=== PATIENT | female | born 1950 | race Caucasian/White ===

== ENCOUNTER 2021-12-27 10:26 | Outpatient (CLI) | payer SELFPAY ==
--- NOTE | 2021-12-27 10:45 | CRLHL7_ITS ---
For Patients: As a result of the Century Cures Act, medical imaging exams and procedure reports are released immediately into your electronic medical record. You may view this report before your referring provider. If you have questions, please contact your health care provider. BILATERAL DIAGNOSTIC MAMMOGRAM WITH COMPUTER-AIDED DETECTION AND TOMOSYNTHESIS RIGHT BREAST ULTRASOUND CLINICAL HISTORY: RIGHT breast lump. Screening LEFT mammogram. TECHNIQUE: BILATERAL diagnostic mammograms with tomosynthesis and computer-aided detection. Targeted RIGHT breast ultrasound was also performed. COMPARISON FILM: Mammograms 05/17/2020. BREAST COMPOSITION: There are areas of scattered fibroglandular density and BILATERAL benign vascular calcifications. FINDINGS: BILATEARL benign vascular calcifications. There is an irregular mass in the anterior RIGHT breast abutting the areola at the 3 o???clock position. The irregular mass measures 1.6 x 1.8 x 1.5 cm. There is also a mildly enlarged lymph node in the RIGHT axilla measuring 1.3 cm in short axis. No mass, suspicious microcalcifications, or other findings in the LEFT breast. Targeted ultrasound of the RIGHT breast at the 3 o???clock position 1 cm from the nipple demonstrates a hypoechoic irregular mass with posterior shadowing. The mass measures 2.0 x 1.8 x 1.2 cm. IMPRESSION: 1. Irregular mass in the anterior RIGHT breast at the 3 o`clock position. Mildly enlarged RIGHT axillary lymph node. 2. Targeted ultrasound at the 3 o`clock position 1 cm from the nipple demonstrates an irregular hypoechoic mass concerning for malignancy. Recommend ultrasound-guided biopsy of the breast mass and lymph node for further evaluation. Findings and recommendations were discussed with the patient at the time of the exam. ASSESSMENT: BI-RADS Category 4: Suspicious A lay language report of this examination will be provided to the patient. Rob Farnsworth M.D. Diagnostic/Musculoskeletal Radiologist [email or web address] KATERYNA/[email or web address] ríos/Dictated by: Rob Farnsworth MD @ 12/27/2021 12:04:00 PM (Electronically Signed)
--- NOTE | 2021-12-27 11:15 | CRLHL7_ITS ---
For Patients: As a result of the Cures Act, medical imaging exams and procedure reports are released immediately into your electronic medical record. You may view this report before your referring provider. If you have questions, please contact your health care provider. PLEASE SEE DIGITAL DIAGNOSTIC BILATERAL MAMMOGRAM PERFORMED SAME DAY CRL:[email or web address] ríos/Dictated by: Rob Farnsworth MD @ 12/27/2021 12:05:00 PM (Electronically Signed)
== END 2021-12-27 10:27 | disposition home or self-care (01) ==
PROVIDERS: PCP Physician Assistant Medical; Visit Provider Physician Assistant Medical
DX: N63.10 Unspecified lump in the right breast, unspecified quadrant (principal)
CPT/HCPCS: 76642; 77066; G0279

== ENCOUNTER 2022-01-05 07:48 | Outpatient (CLI) | payer MEDICARE, SELFPAY ==
--- NOTE | 2022-01-05 08:15 | US_ITS ---
Patient: SHERRI BLANTON Facility:?[facility] RIS Patient ID:?[id number] Site Patient ID:?[id number]. Site :?[id number] Study:?US-Extremity Right RT AXILLA / DR. COLLADO TO READ-01/05/2022 9:16:40 AM Ordering Physician:?José Marcano Final Report: ULTRASOUND-GUIDED RIGHT AXILLARY LYMPH NODE BIOPSY CLINICAL HISTORY: Indeterminate lymph node right axilla COMPARISON STUDIES: A 05/28/2021 TECHNIQUE: Real-time ultrasound with image documentation was used for targeting the right axillary lymph node lesion. Core biopsy specimens were obtained using an automated gun with a 18-gauge biopsy needle. CONSENT and TIME OUT: The procedure, risks, and alternatives were explained to the patient and a consent was signed. [place] Protocol was followed including pre-procedure verification that relevant information/documentation was available, reviewed and properly matched to the patient; consent accurate and complete; and equipment and supplies available. Time Out was conducted just prior to starting procedure to verify the four required elements: patient identity, correct side/site marked (if applicable), procedure, relevant images/results properly labeled and displayed (if applicable). PROCEDURE: The patient was positioned supine on the ultrasound table. The right axilla was prepped with ChloraPrep. 8 cc of 1 percent lidocaine used for local anesthesia. Core samples were obtained. A sterile metal biopsy clip was placed percutaneously to kyleigh the lesion position within the right axilla. The specimens were placed in 10% formalin and sent to the pathology department. Pressure was held on the biopsy site until all bleeding subsided. The skin incision was closed with Steri-Strips. An ice pack was positioned over the biopsy site. Post-biopsy instructions were reviewed with the patient, and a written copy was given to her. LATERALITY: Right LESION: Hypoechoic lymph node measuring 1.2 x 0.9 x 1.2 cm at the right axilla SUSPICION FOR MALIGNANCY: High NUMBER OF SAMPLES: 6 BIOPSY CLIP SHAPE: Coil PROXIMITY OF CLIP TO TARGET: Within the lesion IMPRESSION: Ultrasound-guided right axillary lymph node biopsy. When the pathology report is available, an addendum to this report will be made. ACR not applicable Dictated by Rick Collado MD @ 01/05/2022 11:53:26 AM Signed by:?Rick Collado MD @01/05/2022 1:30:54 PM (Electronic Signature)
--- NOTE | 2022-01-05 08:15 | CRLHL7_ITS ---
For Patients: As a result of the Century Cures Act, medical imaging exams and procedure reports are released immediately into your electronic medical record. You may view this report before your referring provider. If you have questions, please contact your health care provider. ULTRASOUND-GUIDED BREAST BIOPSY AND POST-BIOPSY DIGITAL MAMMOGRAM FOR BIOPSY MARKER PLACEMENT, 01/05/2022 CLINICAL HISTORY: Indeterminate lesion RIGHT breast. COMPARISON STUDIES: Mammogram and ultrasound 12/27/2021. TECHNIQUE: Real-time ultrasound with image documentation was used for targeting the breast lesion. Core biopsy specimens were obtained using an automated gun with a 18-gauge biopsy needle. Post-biopsy CC and ML digital mammograms were obtained to document position of the biopsy marker. CONSENT and TIME OUT: The procedure, risks, and alternatives were explained to the patient and a consent was signed. [place] Protocol was followed including pre-procedure verification that relevant information/documentation was available, reviewed and properly matched to the patient; consent accurate and complete; and equipment and supplies available. Time Out was conducted just prior to starting procedure to verify the four required elements: patient identity, correct side/site marked (if applicable), procedure, relevant images/results properly labeled and displayed (if applicable). PROCEDURE: The patient was positioned supine on the ultrasound table. The breast was prepped with Betadine or ChloraPrep. 10 cc 1 percent lidocaine used for local anesthesia. Core samples were obtained. A sterile metal biopsy clip was placed percutaneously to kyleigh the lesion position within the breast. The specimens were placed in 10% formalin and sent to the pathology department. Pressure was held on the biopsy site until all bleeding subsided. The skin incision was closed with Steri-Strips. An ice pack was positioned over the biopsy site. Post-biopsy instructions were reviewed with the patient, and a written copy was given to her. LATERALITY: RIGHT breast. LESION: Lobular hypoechoic solid mass measuring 2.0 x 1.2 x 1.8 cm at 3 o`clock 1 cm from the nipple. SUSPICION FOR MALIGNANCY: High. NUMBER OF SAMPLES: 6. BIOPSY CLIP SHAPE: Coil. PROXIMITY OF CLIP TO TARGET: Within the lesion. IMPRESSION: Ultrasound-guided breast biopsy. When the pathology report is available, an addendum to this report will be made. 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 This is concordant. Appropriate action recommended. Dictated by Rick Lozada MD @ Jan 05 2022 11:51AM Signed by:?Rcik Lozada MD @01/05/2022 1:30:51 PM (Electronically Signed)
--- NOTE | 2022-01-05 09:00 | CRLHL7_ITS ---
For Patients: As a result of the Cures Act, medical imaging exams and procedure reports are released immediately into your electronic medical record. You may view this report before your referring provider. If you have questions, please contact your health care provider. PLEASE SEE RIGHT ULTRASOUND-GUIDED BIOPSY OF SAME DAY. CRL:[email or web address] SCHERER/Dictated by: Rick Lozada MD @ 01/05/2022 11:50:00 AM (Electronically Signed)
== END 2022-01-05 07:49 | disposition home or self-care (01) ==
LOC: US 07:50
PROVIDERS: PCP Physician Assistant Medical; Visit Provider Physician Assistant Medical
DX: N63.10 Unspecified lump in the right breast, unspecified quadrant (principal); C50.911 Malignant neoplasm of unspecified site of right female breast; R92.8 Other abnormal and inconclusive findings on diagnostic imaging of breast; N64.59 Other signs and symptoms in breast
CPT/HCPCS: 19083; 38505; 76942; 77065; 88305; 88360; 88361; 88377; A4648; A4649

== ENCOUNTER 2022-01-17 13:22 | Outpatient (CLI) | payer MEDICARE, SELFPAY ==
--- NOTE | 2022-01-17 13:45 | CRLHL7_ITS ---
For Patients: As a result of the Century Cures Act, medical imaging exams and procedure reports are released immediately into your electronic medical record. You may view this report before your referring provider. If you have questions, please contact your health care provider. BILATERAL BREAST MRI WITHOUT AND WITH GADOLINIUM, 01/17/2022 CLINICAL HISTORY: Recently diagnosed invasive ductal carcinoma after ultrasound-guided biopsy of a palpable 2 cm mass at 3 o`clock, 1 cm from the nipple in the RIGHT breast. An abnormal RIGHT axillary lymph node was also biopsied and was positive for metastasis. INDICATION FOR BREAST MRI: Staging of newly diagnosed breast cancer and screening of contralateral breast. Regional lymph nodes will also be assessed. COMPARISON STUDIES: Diagnostic mammogram and RIGHT breast ultrasound 12/27/2021 and images from ultrasound-guided RIGHT breast and axillary biopsy and post biopsy mammogram 01/05/2022. CONTRAST: 15 mL Dotarem. TECHNIQUE: The patient was positioned prone using a breast coil. Multiple imaging sequences were obtained using 1-1.5 mm thick slices with no gap. The image sequences include T2-weighted STIR in the axial plane, T1-weighted nonfat-saturated gradient echo in the axial plane, pre- and post-contrast T1-weighted FLASH 3D with fat suppression in the axial plane, and T1-weighted FLASH high resolution 3D with fat suppression in the sagittal plane. Image post-processing was performed on a [employer] workstation. Complex 3D rendering including maximum intensity projections (MIPS) and volumetric renderings were obtained to optimize visualization of the extent of pathology and relationship to the nipple, skin, and chest wall. This aids in determining feasibility of breast conservation surgery. Subtraction, multiplanar reconstruction, mean curve determination, and angiogenesis mapping were also performed. The study was technically adequate. FINDINGS: Amount of Fibroglandular Tissue: Scattered fibroglandular tissue. Breast Background Enhancement: Minimal. RIGHT Breast: In the inner central breast at 3 o`clock, 1 cm posterior to the nipple there is a 1.9 x 1.8 x 1.5 cm oval mass with spiculated margins demonstrating rapid initial washout delayed phase enhancement. The mass involves the skin and the base of the nipple. There is susceptibility artifact within the mass marking the site of biopsy-proven malignancy. There is mild thickening of the skin over the inner breast measuring up to 4 mm. LEFT Breast: There is no suspicious mass or enhancement within the breast. Lymph Nodes: There are at least three abnormal morphology RIGHT axillary lymph nodes. The largest measures 1.5 x 1.2 cm and contains susceptibility artifact from the clip marking the nonmetastatic RIGHT axillary lymph node. No abnormal morphology lymph nodes on the LEFT. Evaluation of internal mammary lymph nodes is somewhat limited due to susceptibility artifact from sternotomy wires. Other: There is a 1 x 0.5 cm T2 hyperintense probable cyst or hemangioma in the right lobe of the liver. IMPRESSIONS AND RECOMMENDATIONS: 1. The biopsy-proven RIGHT breast cancer measures up to 1.9 cm on MRI. The mass involves the skin and the base of the nipple. Continued surgical/oncologic management is recommended. 2. No MRI evidence of malignancy in the LEFT breast. 3. There are at least three abnormal morphology RIGHT axillary lymph nodes including the biopsy-proven metastatic lymph node. Continued surgical/oncologic management is recommended. BI-RADS Category 6: Known, biopsy-proven malignancy Dictated by Nery Lizama MD @ 01/24/2022 9:47:22 AM j/Dictated by: Nery Lizama MD @ 01/24/2022 9:47:00 AM (Electronically Signed)
== END 2022-01-17 13:23 | disposition home or self-care (01) ==
PROVIDERS: PCP Physician Assistant Medical; Visit Provider Surgery
DX: C50.811 Malignant neoplasm of overlapping sites of right female breast (principal)
CPT/HCPCS: 77049; A9575

== ENCOUNTER 2022-02-07 15:00 | Outpatient (CLI) | payer MEDICARE, SELFPAY ==
--- NOTE | 2022-02-07 15:00 | CRLHL7_ITS ---
For Patients: As a result of the Century Cures Act, medical imaging exams and procedure reports are released immediately into your electronic medical record. You may view this report before your referring provider. If you have questions, please contact your health care provider. DXA BONE MINERAL DENSITY STUDY Current height (in): 66.0. Weight (lb): 175.0. Menopause age: 61. Ethnicity: White. Reason for exam: Osteoporosis screening. 1. Have you had a previous hip or vertebral fracture? No. 2. Have you had any fractures during your adult life which did not result from significant trauma (e.g., auto accident)? No. 3. Did either of your parents have a hip fracture? No. 4. Do you smoke? No. 5. Have you ever taken Glucocorticoids? No. 6. Do you have rheumatoid arthritis? No. 7. Do you have secondary osteoporosis? No. 8. Do you drink 3 or more alcoholic drinks per day? No. 9. Are you being treated for osteoporosis? No. 10. Have you ever taken any of the following medications: Actonel, Evista, Fosamax, Miacalcin, Reclast, Boniva, Forteo, HRT (i.e. estrogen/hormone therapy), Protelos, Prolia, Vitamin D, Calcium, other ??? please specify. ANSWER: Yes, vitamin D. 11. Do you have any of the following medical conditions: Anorexia or bulimia, asthma or emphysema, end stage renal disease, hyperparathyroidism, any seizure disorders, cancer, inflammatory bowel diseases, hysterectomy, other ??? please specify. ANSWER: Yes, cancer, hysterectomy. 12. What was your maximum height (inches)? 66. 13. Do you perform weight bearing exercise regularly? No. 14. Do you regularly consume dairy products? Yes. 15. Do you drink caffeinated beverages? Yes. If female: 16. At what age did your period start? 15. 17. Are you premenopausal? No. 18. How many full term pregnancies have you had? 2. 19. Have you ever missed your period for more than 6 months in a row (not including or menopause)? No. TECHNIQUE: Bone mineral density study was performed using the [employer]. FINDINGS: The results of the study expressed as bone mineral density (BMD) are as follows: Lumbar spine L1, L2, L4: BMD: 1.084 g/cm2. T-score: 0.5. Z-score: 2.5. Neck Left: BMD: 0.590 g/cm2. T-score: -2.3. Z-score: -0.5. Right: BMD: 0.620 g/cm2. T-score: -2.1. Z-score: -0.3. Total Left: BMD: 0.799 g/cm2. T-score: -1.2. Z-score: 0.3. Right: BMD: 0.820 g/cm2. T-score: -1.0. Z-score: 0.5. IMPRESSION: Osteopenia. FRAX 10-year Fracture Risk Major Osteoporotic Fracture: 13 percent Hip Fracture: 2.8 percent Reported Risk Factors: [place] () Neck BMD = 0.590, BMI = 28.2 Rick Lozada M.D. Diagnostic Radiologist [email or web address] Transcribed: 11:07 a.m. DW/Dictated by: Rick Lozada MD @ 02/08/2022 8:36:00 AM (Electronically Signed)
== END 2022-02-07 15:01 | disposition home or self-care (01) ==
LOC: RAD 15:01
PROVIDERS: PCP Physician Assistant Medical; Visit Provider Nurse Practitioner Family
DX: Z13.820 Encounter for screening for osteoporosis (principal); M85.89 Other specified disorders of bone density and structure, multiple sites
CPT/HCPCS: 77080

== ENCOUNTER 2022-02-09 14:45 | Outpatient (CLI) | payer MEDICARE, MEDICAID, SELFPAY | END 2022-02-09 14:46 | disposition home or self-care (01) | LOC: FRMREF 02-16 10:23 | PROVIDERS: PCP Physician Assistant Medical; Visit Provider Nurse Practitioner Family | DX: N94.89 Other specified conditions associated with female genital organs and menstrual cycle (principal); E11.9 Type 2 diabetes mellitus without complications; I42.2 Other hypertrophic cardiomyopathy; E78.5 Hyperlipidemia, unspecified; I10 Essential (primary) hypertension | CPT/HCPCS: 82652 ==

== ENCOUNTER 2022-03-01 07:40 | Day surgery (SDC) | payer MEDICARE, SELFPAY ==
--- NOTE | 2022-02-19 13:41 | ONC.NURNOTE ---
Received call from Veronica, pt's daughter asking about mobility problem solving post surgery. She ususally helps the patient get out of the car by lifting under her arms to help her stand up. Reviewed barriers of no heavy lifting or raising arms above her head and possible strategies to manage, including using a gait belt. As pt has had her pre-op PT consult, recommended f/u with that team to further problem-solve in advance of surgery 03/01.
[2022-03-01] VITALS (18 sets, daily range): BP systolic 102–172; BP diastolic 40–93; PULSE 55–91; RESP 14–16; TEMP 35.1–36.8; O2SAT 14–100; BMI 30.1
[2022-03-01] MEDS: SODIUM CHLORIDE 0.9 % (FLUSH) 10 ML SYRINGE IVF (08:50)
[2022-03-01 08:55] LABS: Basophils Absolute Auto 0.01 K/uL (0.00-0.30); Basophils Percent Auto 0.2 % (0.0-3.0); Eosinophils Absolute Auto 0.16 K/uL (0.00-0.50); Eosinophils Percent Auto 3.5 % (0.0-7.0); Hematocrit 36.9 % (33.0-51.0); Hemoglobin* 12.4 gm/dL (12.0-16.0); Lymphocytes Absolute Auto 1.54 K/uL (0.90-2.90); Lymphocytes Percent Auto 33.6 % (20-44); Mean Corpuscular HGB Conc 34 gm/dL (32-36); Mean Corpuscular Hemoglobin 30 pg (26-34); Mean Corpuscular Volume 89 fL (80-100); Monocytes Percent Auto 8.7 % (0.0-11.0); Neutrophils Absolute Auto 2.48 K/uL (1.7-7.0); Platelet Count* 125 K/uL (140-440); RDW Coefficient of Variation % 11.8 % (11.5-15.5); Red Blood Count 4.17 m/uL (4.00-5.20); White Blood Count* 4.59 K/uL (4.50-11.00)
[2022-03-01 08:57] LABS: Slide Review Reflex No
--- NOTE | 2022-03-01 09:15 | CRLHL7_ITS ---
For Patients: As a result of the Cures Act, medical imaging exams and procedure reports are released immediately into your electronic medical record. You may view this report before your referring provider. If you have questions, please contact your health care provider. RIGHT AXILLARY LYMPH NODE WIRE LOCALIZATION USING ULTRASOUND GUIDANCE CLINICAL HISTORY: Right breast cancer with metastatic adenopathy. LATERALITY: Right axilla LESION: Previously biopsied metastatic right axillary lymph node. LOCALIZATION WIRE: [place] hookwire. TECHNIQUE: The localization wire was placed using real-time ultrasound guidance with image documentation. CONSENT and TIME OUT: The procedure, risks, and alternatives were explained to the patient and a consent was signed. [place] Protocol was followed including pre-procedure verification that relevant information/documentation was available, reviewed and properly matched to the patient; consent accurate and complete; and equipment and supplies available. Time Out was conducted just prior to starting procedure to verify the four required elements: patient identity, correct side/site marked (if applicable), procedure, relevant images/results properly labeled and displayed (if applicable). PROCEDURE: The skin was prepped with ChloraPrep and 10 cc of 1% lidocaine was injected for local anesthesia. The localization wire was placed within or near the targeted right axillary lesion using ultrasound guidance. The patient tolerated the procedure well. PROXIMITY OF WIRE TO LESION: Within the lesion. IMPRESSION: Successful right axillary lymph node wire localization. ACR not applicable Dictated by Rick Lozada MD @ 03/01/2022 10:17:22 AM (Electronically Signed)
--- NOTE | 2022-03-01 09:27 | CRLHL7_ITS ---
For Patients: As a result of the Cures Act, medical imaging exams and procedure reports are released immediately into your electronic medical record. You may view this report before your referring provider. If you have questions, please contact your health care provider. RIGHT BREAST SPECIMEN RADIOGRAPH, 03/01/2022 CLINICAL HISTORY: RIGHT breast cancer with metastatic RIGHT axillary adenopathy. S/p mastectomy BILATERAL with RIGHT axillary dissection and wire localization of previously biopsied RIGHT axillary lymph node. COMPARISON: MRI 01/17/2022 FINDINGS: Specimen contains multiple abnormal RIGHT axillary lymph nodes including the largest lymph node with a biopsy clip. Vascular calcifications are present and there are surgical clips. The wire is also present. IMPRESSION: Specimen contains numerous abnormal lymph nodes including the previously biopsied lymph node, clip and wire. ACR not applicable. Dictated by Rick Lozada MD @ 03/01/2022 1:15:34 PM CRL:[email or web address] RD/Dictated by: Rick Lozada MD @ 03/01/2022 1:15:00 PM (Electronically Signed)
[2022-03-01] MEDS: LACTATED RINGERS 1000 ML 1,000 ML 100 ML IV (10:00)
[2022-03-01] MEDS: CEFAZOLIN 2 GM INJ IVP (10:37)
--- NOTE | 2022-03-01 14:16 | W.ANESCHARGE ---
Anesthesia Charges Start Date/Time Anesthesia Start Date: 03/01/22 Anesthesia Start Time: 10:13 Stop Date/Time Anesthesia Stop Date: 03/01/22 Anesthesia Stop Time: 14:15 Summary Emergency: No
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
--- NOTE | 2022-03-01 14:28 | W.PM.NB ---
Nerve Block Nerve Block Time Seen by Provider: 10:20 Date Seen: 03/01/22 Type of block requested by surgeon for post-operative analgesia: intercostal and intercostal add on Side: bilateral Time out performed: Yes Verification of patient name: Yes Verification of date of : Yes Site marking: site marked Name of person performing procedure: Panchito Continuous monitoring Was continuous monitoring of O2 sat, B/P, awake overnight monitor, recorded every 15 minutes?: Yes Procedure Checklist: sterile prep, needles and gloves Ultrasound guided. Images saved: Yes Medications given in 5ml increments after negative aspiration: Marcaine %: 0.25 mL: 40 Needle gauge: 20 and Exparel mL: 20 Needle gauge: 20 Patient tolerated procedure well: Yes Block Charges Block Charge (with Pro Fee): Intercostal Nerve Block (Bilateral ) Use of Ultrasound Machine for Block: Yes- US Guidance/pain block
--- NOTE | 2022-03-01 14:31 | W.ANESCHARGE ---
Anesthesia Charges Start Date/Time Anesthesia Start Date: 03/01/22 Anesthesia Start Time: 10:13 Stop Date/Time Anesthesia Stop Date: 03/01/22 Anesthesia Stop Time: 14:15 Summary Emergency: No
--- NOTE | 2022-03-01 14:34 | P.GSOP_ITS ---
Operative Note Date of procedure: 03/01/22 Type of Procedure: 1. Bilateral mastectomy 2. Right axillary dissection with preoperative wire localization of biopsied right axillary lymph node Procedure Description: After discussing the risks and benefits of the procedure, the patient signed informed consent.? The operative site was marked and the patient was brought to the operating room and placed on the operating table in supine position.? Care was taken to pad the patient's pressure points.?? The patient was then intubated by anesthesia.?? The operative site was then prepped and draped in the usual sterile fashion.? A time-out was then performed. Oblique incisions were then drawn out on each side for symmetry. Her left breast was noticeably larger than the right. The tumor was palpable on the right below the nipple-areolar complex. We began on the right side. An oblique incision was made using a skin knife. Subcutaneous flaps were created using cautery. Care was taken to stay in the avascular plane between the breast tissue in the subcutaneous tissue. Dissection was taken superiorly to the clavicle, medially to the sternum, inferiorly to the superior aspect of the rectus sheath, and laterally to the latissimus. Once the flaps were created, the breast was taken off of the chest wall, taking the pectoralis fascia with. Small bleeding vessels were cauterized. Once I reached the axilla, I divided the breast from the axillary fat. The specimen was then marked with a stitch at the superior aspect and sent for gross margins which were negative. Attention was then turned to the axillary dissection. The axillary fat was exposed. I began my dissection along the pectoralis minor muscle and chest wall. Using a right angle, I carefully teased away the lymphatic tissue from the chest wall as I headed superiorly towards the area of the axillary vein. Cautery was used to divide this wispy tissue. Small blood vessels were clipped. The long thoracic nerve bundle was encountered on the chest wall. Care was taken avoid injury to this structure. I took my dissection superiorly to the axillary vein. The lymphatic tissue was retracted inferiorly and dissected free from the axillary vein. A branch was divided with suture. Below this I visualized the thoracodorsal bundle. This was dissected free from the axillary fat and preserved. The alta tissue was then swept inferiorly. Of note, the previously wire localized node was palpable and contained within the specimen. An intercostal brachial nerves were attempted to be spared however because they intersected the specimen, 1 of the nerves had to be divided. Once the axillary tissue was removed from the chest wall medially, the latissimus posterior laterally and the axillary vein superiorly, it was removed and sent to x-ray to ensure that the preoperatively biopsied node was contained within. The clip was present in the specimen. This was then sent to pathology as the right axillary dissection tissue. Once this was done hemostasis was achieved with cautery. I then turned my attention to the left side. Gloves and instruments were changed. An identical incision was made and dissection was taken down into the subcutaneous tissue creating skin flaps superiorly to the clavicle, medially to the sternum, inferiorly to the superior rectus sheath and laterally to the latissimus. The breast tissue was then removed from the pectoralis muscle, taking the pectoralis fascia. Hemostasis was achieved with cautery. A stitch was placed to orient the specimen and it was sent to pathology. Giovanna was then placed in the wound beds bilaterally. Hemostasis was ensured with cautery. Three 15-indonesian drains were placed, 1 in the left chest wall, and 1 in the right axilla (superior), and 1 in the right chest wall. and secured in place with nylon suture. The wounds were then closed with interrupted Vicryl dermal suture and Monocryl running subcuticular suture. Sterile dressings were applied. Instrument sponge and needle counts were correct. The patient charlee ated the procedure well. ? The patient tolerated the procedure well. Findings: 1) grossly Negative margins on right breast 2) previously biopsied right axillary node present within specimen Implants: 15 [place] left chest wall drain 15 [place] right chest wall drain 15 [place] right axillary drain (superior) Anesthesia: GETA Surgeon: Ramila Wells MD Estimated blood loss (mL): 100 Condition: stable Disposition: PACU
[2022-03-01] MEDS: HYDROmorphone 0.5 mg/0.5 ml inj IVP ×2 (16:22→21:54)
[2022-03-01] MEDS: ATORVASTATIN 10 MG TABLET 5 MG PO (17:51)
--- NOTE | 2022-03-01 18:11 | PC.NURSE ---
PATIENT ARRIVED TO FLOOR FROM PACU AROUND 1500, DROWSY AWAKES TO VOICE, ALERT AND ORIENTED, INITIALLY DECLINING PAIN IN CHEST LATER RATING PAIN 5/10 AND PRN DILAUDID GIVEN WITH RELIEF, SWAPNIL HUGGER APPLIED, DRESSING TO CHEST CDI WITH MARINE WRAP IN PLACE, LINK PATENT, 2 RIGHT JPS AND 1 LEFT LEATHA PATIENT WITH BLOODY DRAINAGE, DRT PRESENT AT BEDSIDE AND EDUCATED ON EMPTYING JPS VERBALIZED UNDERSTANDING, ALSO EDUCATED PATIENT AND DTR ON T-JOSE ARMS BOTH VERBALIZED UNDERSTANDING, PATIENT SHAKING ONE OF THE SURGICAL MEDICATION MAKES ME DO THIS, RIGHT ARM RESTRICTION DUE TO NODE REMOVAL, TOLERATING ICE CHIPS AND FLUIDS AT THIS TIME DECLINING FOOD, DECLINING NAUSEA.
[2022-03-01] MEDS: MEPERIDINE 25 MG/ML INJ 12.5 MG IVP (19:45)
[2022-03-01] MEDS: LACTATED RINGERS 1000 ML 1,000 ML 75 ML IV (22:00)
[2022-03-01] MEDS: lamoTRIgine 100 MG TABLET PO (22:01)
[2022-03-02] MEDS: HYDROmorphone 0.5 mg/0.5 ml inj IVP (02:22)
--- NOTE | 2022-03-02 02:42 | PC.NURSE ---
End of Shift: Patient pleasant and cooperative. Afebrile. Rating pain up to 6-8/10 and PRN Dilaudid given x2. Aquino discontinued.
--- NOTE | 2022-03-02 03:50 | PC.NURSE ---
Patient currently sleeping
[2022-03-02] MEDS: HYDROCODONE-ACETAMIN 5-325 MG 1 TAB PO ×3 (05:38→13:01)
--- NOTE | 2022-03-02 05:41 | PC.NURSE ---
End of Shift Note: Took over care of patient around 0300 this morning. Did let her sleep for the most part of my 4 hour shift. But then went to strip and drain her 3 luisito drains and also check on her pain level. As I drain the jps i was explaining to her what I was doing and asked if someone was going to be available to help her with her drains and the dressing change. States her youngest daughter lives with her and will be available to help her. Explain to her she should have her daughter come in this morning so that she can be shown how to do dressing change and how to empty luisito drains. She was given pain medication see MAR. Will continue to monitor until next shift.
[2022-03-02 07:00] VITALS: BP 101/63; PULSE 74; RESP 18; TEMP 36.8; O2SAT 95
[2022-03-02] MEDS: OLANZapine 5 MG TAB.RAPDIS 15 MG PO (09:18)
[2022-03-02] MEDS: METOPROLOL TARTRATE 25 MG TABLET PO (09:19)
[2022-03-02] MEDS: 0.9 % SODIUM CHLORIDE 1000 ml 1,000 ML IV (10:53)
[2022-03-02 11:00] VITALS: BP 102/86; PULSE 70; RESP 18; TEMP 36.9; O2SAT 95
--- NOTE | 2022-03-02 11:58 | PM.DS1 ---
DS: Providers Provider Date Seen: 03/02/22 Primary care physician: Jeet Kumar PA-C Attending Physician on discharge: Ramila Wells MD DS: Summary Hospital Course Hospital Course: Patient was admitted after a bilateral mastectomy with right axillary dissection. Procedure was tolerated well with [address] post op. At the time of discharge she was tolerating a regular diet, pain was controlled on oral medications and patient was ambulating independently. Her daughter will be educated regarding drain cares. Patient will follow up in clinic on 03/07. Time Spent with Patient Time attestation: Total time spent providing and/or coordinating discharge services: Exam Narrative: Exam Narrative: Gen: alert and oriented, no acute distress Breast: Bilateral incisions with dressings in place, dressings taken down. Right breast incision c/d/i, some mild erythema on superior aspect of flap, mild ecchymosis within the axilla. No obvious areas of necrosis. Right sided drains with minimal serosanguinous output. Left breast incision c/d/i. Minimal bruising. Drain in place with minimal sanguinous output. Const: Vital Signs, click to edit/add: Vital Signs - 24 hr 03/01/22 14:20 03/01/22 14:25 03/01/22 14:15 Temperature 97.0 F L Pulse Rate 73 66 70 Pulse Rate [Right Pulse Oximeter] Respiratory Rate 16 16 16 Blood Pressure 131/63 119/62 126/65 Blood Pressure [Le ft Arm] Pulse Oximetry 98 98 98 Oxygen Delivery Me thod OxyMask OxyMask OxyMask Oxygen Flow Rate 5 5 5 03/01/22 14:30 03/01/22 14:35 03/01/22 14:40 Temperature Pulse Rate 67 72 62 Pulse Rate [Right Pulse Oximeter] Respiratory Rate 16 16 16 Blood Pressure 131/64 133/93 H 139/70 Blood Pressure [Le ft Arm] Pulse Oximetry 98 100 100 Oxygen Delivery Me thod OxyMask OxyMask Room Air Oxygen Flow Rate 5 2 03/01/22 14:45 03/01/22 15:00 03/01/22 14:56 Temperature 97.0 F L 95.1 F L Pulse Rate 61 63 Pulse Rate [Right Pulse Oximeter] Respiratory Rate 16 16 Blood Pressure 137/67 Blood Pressure [Le ft Arm] 140/77 H Pulse Oximetry 99 96 Oxygen Delivery Me thod Room Air Room Air Oxygen Flow Rate 03/01/22 15:00 03/01/22 15:15 03/01/22 15:30 Temperature 95.1 F L 95.6 F L Pulse Rate Pulse Rate [Right Pulse Oximeter] 58 L 58 L 55 L Respiratory Rate 14 14 14 Blood Pressure Blood Pressure [Le ft Arm] 130/72 141/66 H 145/70 H Pulse Oximetry 96 95 94 Oxygen Delivery Me thod Room Air Room Air Room Air Oxygen Flow Rate 03/01/22 15:45 03/01/22 16:00 03/01/22 16:30 Temperature 95.9 F L 96.0 F L Pulse Rate Pulse Rate [Right Pulse Oximeter] 77 74 76 Respiratory Rate 16 16 16 Blood Pressure Blood Pressure [Le ft Arm] 147/62 H 152/69 H 142/65 H Pulse Oximetry 93 91 94 Oxygen Delivery Me thod Room Air Room Air Room Air Oxygen Flow Rate 03/01/22 17:00 03/01/22 18:00 03/01/22 23:00 Temperature 96.5 F L Pulse Rate Pulse Rate [Right Pulse Oximeter] 87 91 Respiratory Rate 16 16 Blood Pressure Blood Pressure [Le ft Arm] 172/74 H Pulse Oximetry 95 91 91 Oxygen Delivery Me thod Room Air Room Air Oxygen Flow Rate 03/01/22 23:00 03/01/22 23:00 03/02/22 03:00 Temperature 98.2 F Pulse Rate Pulse Rate [Right Pulse Oximeter] 81 81 Respiratory Rate 16 16 Blood Pressure Blood Pressure [Le ft Arm] 105/50 L Pulse Oximetry 93 Oxygen Delivery Mi thod Room Air Intubated Oxygen Flow Rate 03/02/22 07:00 03/02/22 07:00 03/02/22 07:00 Temperature 98.3 F Pulse Rate Pulse Rate [Right Pulse Oximeter] 74 74 Respiratory Rate 18 18 Blood Pressure Blood Pressure [Le ft Arm] 101/63 Pulse Oximetry 95 95 Oxygen Delivery Me thod Room Air Oxygen Flow Rate DS: Data Data Completed and Pending Labs on day of discharge: Labs from last 24 hours 03/01/22 08:39 Imm/Tot Granulo (auto) 0.0 Discharge Plan Discharge Disposition: Home, Self-Care Discharging Surgeon: Ramila Wells Follow-Up Appointment: Follow up with Dr. Nehemiah Ho 9 Prescriptions: New hydrocodone-acetaminophen 5-325 mg Tablet 1 tab PO Q6H PRN (Reason: Pain) Qty: 25 0RF Continued famotidine 20 mg tablet 20 mg PO .hs PRN atorvastatin 10 mg tablet 5 mg PO QPM lamotrigine 100 mg tablet 100 mg PO BID aspirin 325 mg tablet,delayed release (DR/EC) 325 mg PO QDAY nystatin 100,000 unit/gram cream 1 applic topical TID PRN ondansetron 4 mg tablet,disintegrating 4 mg PO Q6H PRN pantoprazole 40 mg tablet,delayed release (DR/EC) 40 mg PO QDAY PRN metoprolol tartrate 25 mg tablet 25 mg PO BID Qty: 180 1RF Rx Instructions: Take 1 tab in the AM and 0.5tab in the PM olanzapine 5 mg tablet 15 mg PO HS Held alprazolam 0.5 mg tablet 0.5 mg PO ONCE Qty: 1 0RF Hold Instructions: Resume on 03/05/22. Do not take while taking prescribed pain pill Rx Instructions: 1 po 30 minutes prior to MRI procedure Discontinued acetaminophen [Tylenol] 325 mg capsule 650 mg PO Q6H PRN Activity Level: No strenuous activity Activity Detail: No lifting more than 20 lb for 4 weeks. Discharge Diet: Regular Patient Instructions: Lymphedema (GEN), Mastectomy (GEN) Additional Instructions: Wound care: Your sutures are under the skin and will dissolve over time. Leave steri strips (white bandages) over incisions until they fall off (or remove after 7 days). OK to shower tomorrow but avoid bathing, soaking or swimming for 2 weeks. Pat the incisions dry. No need to wash or scrub the area. Cover the drain sites with Saran wrap if you shower to keep them dry. Apply ice to the area as needed for swelling. It is also OK to use a heating pad if this provides more comfort to you. Drain care: Change drain sponges daily. Empty and record drain output separately and bring to your follow-up appointment. Once each drain is putting out less than 30 ml per day for 2 consecutive days, it can be pulled. If you still have drains in place after your 1st postoperative visit, please call the breast laboratory animal care veterinarian (Estela or Madhavi) who can help arrange a time for you to come in and have your remaining drains pulled when the output is low enough. Keep Sanket wrap in place until the drains are removed. Pain control: You were prescribed a pain medication. This medication contains acetaminophen (Tylenol). If you are taking your prescribed pain pills 4 times daily, do not take additional acetaminophen. As your pain improves, you can try taking acetaminophen instead of the prescribed pain pill. It is ok to take Ibuprofen or Naproxen (per directions on packaging). This medication helps with inflammation and swelling. Take an [id number] stool softener while you are taking prescribed pain medications to help alleviate constipation. I recommend Senna and/or Colace. Take as directed on package. If you have not had a bowel movement in 3 days, try taking Miralax as directed on the package. All of these are available over the counter. Follow-up Follow up with Dr. Cerna next Saturday Please call if you are experiencing severe pain, nausea, vomiting, difficulty urinating, fever or have not had bowel movement in 4 days after surgery. Forms: Work/Release Restrictions Follow-up: Jeet Kumar PA-C [Primary Care Provider] - Discharge Orders: Discharge Order (Routine); Ordered 03/02/22 Ordered By: Ann Cerna
[2022-03-02] MEDS: LACTATED RINGERS 1000 ML 1,000 ML 75 ML IV (12:27)
--- NOTE | 2022-03-02 15:22 | PC.NURSE ---
Pt up with SBA to chair with IV pole. Tolerates regular diet without N/V. Rates pain 4-7/10; Iola with relief. Eductaion on LEATHA drains and binding done throughout shift/ Pt requests all eduction be done when daughter is present.
--- NOTE | 2022-03-02 16:50 | PC.NURSE ---
Discharge: patients daughter along with patient given discharge instructions and teachings on LEATHA drain care, demonstration given. Discussed medications and follow up orders. Patients son in law expressed that he was upset with discharge, stated it seemed messy and claimed staff did not inform family that patient could discharge until 2pm and that they felt picking her up at 4pm was too late. Explained discharge process to family. IV removed from right wrist. Patient discharged from unit @ 1620 via wheelchair, discharged home.
== END 2022-03-02 16:20 | disposition home or self-care (01) ==
LOC: OR 07:44 → MEDSURG 08:00
PROVIDERS: PCP Physician Assistant Medical; Visit Provider Surgery
PROC: (CPT 19303; principal; 2022-03-01 10:00)
DX: C50.811 Malignant neoplasm of overlapping sites of right female breast (principal); C77.3 Secondary and unspecified malignant neoplasm of axilla and upper limb lymph nodes; Z17.0 Estrogen receptor positive status [ER+]; N60.92 Unspecified benign mammary dysplasia of left breast
CPT/HCPCS: 19303; 38525; 10035; 36415; 400; 64420; 76942; 82962; 85025; 86850; 86900; 86901; 88307; 88309; 88341; 88342; 88360; A9270; C1769; C9290; J0690; J1170; J2175; J2250; J2370; J2405; J2704; J3010; J3490; J7030; J7120

== ENCOUNTER 2022-04-13 12:00 | Outpatient (RCR) | payer MEDICARE, SELFPAY ==
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
--- NOTE | 2022-04-06 16:32 | ONC.NURNOTE ---
Pt has dental appt for Sat 04/07 @ 1300 at [facility]. Dental Clearance form faxed. p: [phone] f: [phone]
--- NOTE | 2022-05-07 11:39 | ONC.NURNOTE ---
Called pt and daughter Kathy to check in on how weekend went following 1st T/C last . Pt notes her fatigue has increased; she is sleeping ~45 min/night (baseline 3-4 hrs/night prior to Breast Ca dx). She reports a hx of difficulty falling asleep and staying asleep. She has a hx of urinary urgency that is flaring right now, which is contributing to interrupted sleep. She saw Urology in the past who referred pt to pelvic floor PT; pt unable to begin treatment at the time d/t complex psychosocial issues, including ride availability. She denies current pain with urination, fevers, other s/s UTI. Reviewed pt's PO intake. Pt denies N/V but reports very low appetite. She estimates drinking 24 oz or more of water/day over the weekend; difficult to quantify/track. Daughter notes she has been reminding her to drink and will watch her intake more closely. Foods she tolerates include pizza, cookies, crackers; encouraged increasing intake of fluid-containing foods, i.e. popsicles, ice cream, soup, fruit, etc. She denies diarrhea or constipation. She denies dizziness, light-headedness, fainting, seeing starts or spots with position changes. She states she feels steady, just very tired, especially after activity like taking a shower. Pt reports occasional shooting pain on bilateral sides of trunk that comes and goes. Describes as lower than ribs, but further difficult to characterize, saying it varies. Pt's daughter, Kathy, reports pt developed red spots on her face and neck sometime around Saturday that are improving without intervention. She describes them as looking like pimples; pt denies itchiness currently or over the weekend. Kathy emailed 4 photos of rash; copy writer to review photos with Elizabeth Stephen APRN. Discussed possibility of coming into [facility] today for assessment of dehydration, rash, pain; pt declined, wanting to try to increase PO fluids at home. Reviewed with pt and daughter Kathy that BNN to review with Elizabeth Stephen APRN, call tomorrow morning to check in and discussed a strong possibility of needing IVF tomorrow (Tues) if not significant improvement.
== END 2022-09-07 23:59 | disposition home or self-care (01) ==
PROVIDERS: PCP Physician Assistant Medical; Visit Provider Surgery
DX: C50.911 Malignant neoplasm of unspecified site of right female breast (principal); Z51.89 Encounter for other specified aftercare
CPT/HCPCS: 97110; 97140; 97162; 97164; 97165; 97535

== ENCOUNTER 2022-06-01 10:43 | Inpatient (IN) | payer MEDICARE, SELFPAY ==
[2022-06-01] VITALS (40 sets, daily range): BP systolic 64–105; BP diastolic 33–74; PULSE 78–203; RESP 18–20; TEMP 36.3–37; O2SAT 55–97; BMI 27.4; BMI 29.4
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
[2022-06-01] MEDS: PIPERACILLIN/TAZOBACTAM 3.375 GM in 0.9 % SODIUM CHLORIDE Mini-bag 100 ML IVPB (11:34)
[2022-06-01] MEDS: 0.9 % SODIUM CHLORIDE 1000 ml 1,000 ML 6000 ML IV ×3 (11:34→12:42)
[2022-06-01 11:40] LABS: Basophils Percent Auto 0.3 % (0.0-3.0); Eosinophils Percent Auto 0.3 % (0.0-7.0); Hemoglobin* 10.6 gm/dL (12.0-16.0); Immature Granulocytes Pct Auto 8.2 %; Lymphocytes Percent Auto 16.1 % (20-44); Mean Corpuscular HGB Conc 33 gm/dL (32-36); Mean Corpuscular Hemoglobin 29 pg (26-34); Mean Corpuscular Volume 87 fL (80-100); Monocytes Percent Auto 17.2 % (0.0-11.0); Neutrophils Percent Auto 57.9 % (42.0-72.0); Platelet Count* 83 K/uL (140-440); RDW Coefficient of Variation % 12.9 % (11.5-15.5); Red Blood Count 3.68 m/uL (4.00-5.20); White Blood Count* 3.54 K/uL (4.50-11.00)
[2022-06-01 11:43] LABS: Lactate* 1.5 mmol/L (0.5-1.9)
[2022-06-01 11:50] LABS: PCR FLU A Negative PCR FLU A (Negative); PCR FLU B Negative PCR FLU B (Negative); PCR RSV Negative PCR RSV (Negative); SARS PCR* Negative SARS-CoV-2 (Negative)
[2022-06-01 11:52] LABS: Slide Review Reflex Yes
[2022-06-01 11:55] LABS: Albumin* 3.4 g/dL (3.3-5.0); Chloride* 103 mmol/L (96-114)
[2022-06-01 11:56] LABS: Potassium* 4.7 mmol/L (3.6-5.1); Sodium* 133 mmol/L (135-149)
[2022-06-01 11:58] LABS: Creatinine* 1.8 mg/dL (0.5-1.5); Est. Creatinine Clearance* 27.22; Estimated Glomerular Filt Rate 30 ml/min
[2022-06-01 11:59] LABS: Alanine Aminotransferase* 13 U/L (4-35); Alkaline Phosphatase* 62 U/L (40-150); Aspartate Amino Transferase* 25 U/L (12-35); Bilirubin Direct* 0.4 mg/dL (0.0-0.5); Bilirubin Total* 1.3 mg/dL (0.1-1.5); Blood Urea Nitrogen* 19 mg/dL (7-30); Calcium* 8.4 mg/dL (8.4-10.6); Carbon Dioxide* 26 mmol/L (20-32); Glucose* 119 mg/dL (60-115); Total Protein* 6.4 g/dL (6.0-8.3)
[2022-06-01 12:11] LABS: Troponin I* 0.02 ng/mL (0.01-0.04)
[2022-06-01 12:12] LABS: INR 1.21 (0.91-1.10); Prothrombin Time 16.1 Seconds
[2022-06-01 12:17] LABS: C Reactive Protein* 21.7 mg/dL (0.5-1.0)
[2022-06-01] MEDS: 5 % DEXTROSE/0.9% SOD CHLORIDE 1,000 ML 75 ML IV (13:06)
[2022-06-01 14:27] LABS: Appearance Urine Cloudy (Clear); Bilirubin Urine Negative (Negative); Blood Urine Negative (Negative); Color Urine Yellow (Yellow); Glucose Urine Negative (Negative); Ketones Urine Negative (Negative); Leukocyte Esterase Urine Trace (Negative); Nitrite Urine Negative (Negative); Protein Urine 1+ (Negative); Specific Gravity Urine 1.025 (1.000-1.030); Urobilinogen Urine 0.2 (0.2-1.0); pH Urine 5.5 (5.0-8.5)
[2022-06-01 14:44] LABS: Bacteria Urine Few; RBC Urine 0-2 (0-2); Squamous Epithelial Cell Urine Moderate (None-Few)
[2022-06-01 14:57] LABS: Slide Review Acceptable Review (Acceptable)
[2022-06-01 17:33] LABS: Procalcitonin* 0.16 ng/mL (<0.50)
[2022-06-01] MEDS: ACETAMINOPHEN 500 MG TABLET PO (18:09)
[2022-06-01] MEDS: LOPERAMIDE HCL 2 MG CAPSULE PO (18:10)
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
[2022-06-01] MEDS: ATORVASTATIN 10 MG TABLET 20 MG PO (20:45)
[2022-06-01] MEDS: BUSPIRONE 10 MG TABLET 7.5 MG PO (20:45)
[2022-06-01] MEDS: carvediloL 6.25 MG TABLET 3.125 MG PO (20:47)
[2022-06-01] MEDS: QUETIAPINE 100 MG TABLET 200 MG PO (20:48)
[2022-06-01] MEDS: MELATONIN 3 MG TABLET PO (20:48)
[2022-06-01] MEDS: lamoTRIgine 100 MG TABLET PO (20:48)
[2022-06-01] MEDS: SODIUM CHLORIDE 0.9 % (FLUSH) 10 ML SYRINGE 5 ML IVF (20:49)
[2022-06-01] MEDS: 5 % DEXTROSE/0.9% SOD CHLORIDE 1,000 ML 125 ML IV (22:27)
[2022-06-02] VITALS (7 sets, daily range): BP systolic 108–123; BP diastolic 44–85; PULSE 67–97; RESP 16–24; TEMP 36.6–37.6; O2SAT 90–93
--- NOTE | 2022-06-02 05:03 | PC.NURSE ---
Shift note: Pt still complain of weakness and has been in bed throughout the shift. Make needs and used call light appropriately. Denied Pain, SOB and. However, the Bp has been recorded around low normal.Pt had good night sleep.
[2022-06-02 06:38] LABS: Basophils Percent Auto 0.3 % (0.0-3.0); Eosinophils Percent Auto 0.6 % (0.0-7.0); Hematocrit 28.2 % (33.0-51.0); Hemoglobin* 9.2 gm/dL (12.0-16.0); Immature Granulocytes Pct Auto 16.7 %; Lymphocytes Percent Auto 8.1 % (20-44); Mean Corpuscular HGB Conc 33 gm/dL (32-36); Mean Corpuscular Hemoglobin 29 pg (26-34); Mean Corpuscular Volume 89 fL (80-100); Monocytes Percent Auto 11.9 % (0.0-11.0); Neutrophils Percent Auto 62.4 % (42.0-72.0); Platelet Count* 72 K/uL (140-440); Red Blood Count 3.16 m/uL (4.00-5.20); White Blood Count* 3.35 K/uL (4.50-11.00)
[2022-06-02 06:45] LABS: Chloride* 111 mmol/L (96-114); Potassium* 3.3 mmol/L (3.6-5.1); Sodium* 136 mmol/L (135-149)
[2022-06-02 06:48] LABS: Creatinine* 0.9 mg/dL (0.5-1.5); Estimated Glomerular Filt Rate 69 ml/min
[2022-06-02 06:49] LABS: Blood Urea Nitrogen* 9 mg/dL (7-30); Calcium* 7.7 mg/dL (8.4-10.6); Carbon Dioxide* 23 mmol/L (20-32); Glucose* 167 mg/dL (60-115); Magnesium* 1.5 mg/dL (1.5-2.6)
[2022-06-02 07:08] LABS: C Reactive Protein* 17.9 mg/dL (0.5-1.0)
[2022-06-02 07:20] LABS: Slide Review Reflex Yes
[2022-06-02 07:21] LABS: Slide Review Acceptable Review (Acceptable)
[2022-06-02] MEDS: POTASSIUM CHLORIDE 10 MEQ CAPSULE ER PO (08:51)
[2022-06-02] MEDS: BUSPIRONE 10 MG TABLET 7.5 MG PO ×2 (08:51→19:29)
[2022-06-02] MEDS: QUETIAPINE 25 MG TABLET 50 MG PO (08:51)
[2022-06-02] MEDS: carvediloL 6.25 MG TABLET 3.125 MG PO ×2 (08:51→19:34)
[2022-06-02] MEDS: SODIUM CHLORIDE 0.9 % (FLUSH) 10 ML SYRINGE 5 ML IVF ×2 (08:52→13:18)
[2022-06-02] MEDS: ASCORBIC ACID 500 MG TABLET PO (08:52)
[2022-06-02] MEDS: lamoTRIgine 100 MG TABLET PO ×2 (08:52→19:29)
--- NOTE | 2022-06-02 12:26 | CRLHL7_ITS ---
For Patients: As a result of the Century Cures Act, medical imaging exams and procedure reports are released immediately into your electronic medical record. You may view this report before your referring provider. If you have questions, please contact your health care provider. INDICATION: Gram positive bacteremia. TECHNIQUE: CT chest, abdomen and pelvis acquired with IV contrast. 90 mL IV Isovue 370. COMPARISON: CT of the abdomen and pelvis 06/01/2021, 06/22/2020 and 02/15/2020. FINDINGS: Chest: Heart size is upper limits of normal. The main pulmonary artery is mildly enlarged measuring 3.3 cm in diameter. Normal caliber thoracic aorta. No thoracic lymphadenopathy. Postsurgical changes in the right axilla and postsurgical changes of right mastectomy. There are mild ground-glass opacities in the right upper lobe. No other abnormal opacities. Small left pleural effusion with associated atelectasis. No consolidation or pneumothorax. Abdomen and Pelvis: Subcentimeter hypoattenuating lesion in the right lobe of the liver decreased in size from the previous exam and likely represents a benign cyst. No suspicious liver lesion. Layering sludge in the gallbladder. No evidence of acute cholecystitis. No biliary ductal dilatation. The spleen, pancreas and adrenal glands are normal in appearance. There is a subcentimeter hypoattenuating left renal lesion which is too small to accurately characterize. Scattered colonic diverticula but no evidence for acute diverticulitis. No bowel obstruction or inflammation. No ascites or free air. No abdominal or pelvic lymphadenopathy. The uterus is surgically absent. Bladder is normal in appearance. Sternotomy changes. No acute osseous abnormality or suspicious osseous lesion. IMPRESSION: 1. Mild ground-glass opacities involving the right upper lobe are suspicious for pneumonia. 2. No acute abnormality or evidence of infection in the abdomen or pelvis. 3. Enlargement of the main pulmonary artery suggestive of pulmonary arterial hypertension. Please note that all CT scans at this facility use dose modulation, iterative reconstruction, and/or weight-based dosing when appropriate to reduce radiation dose to as low as reasonably achievable. Dictated by Nery Lizama MD @ 06/02/2022 2:32:22 PM (Electronically Signed)
[2022-06-02] MEDS: LORazepam 2 MG/ML inj 0.5 MG IVP (13:18)
--- NOTE | 2022-06-02 13:26 | REH.PT ---
Hold PT today per MD Bradshaw. Will attempt Eval & Treat 2/5
[2022-06-02] MEDS: PIPERACILLIN/TAZOBACTAM 3.375 GM in 0.9 % SODIUM CHLORIDE Mini-bag 100 ML IVPB ×2 (13:45→18:19)
[2022-06-02] MEDS: POTASSIUM CHLORIDE 10 MEQ/100 ML PIGGYBACK 100 MEQ IVPB ×2 (16:05→19:24)
--- NOTE | 2022-06-02 17:00 | PM.IMPN1 ---
Progress Note: A&P Assessment and plan (1) Pneumonia: Problem details: -right upper lobe. Zosyn and vanc started this morning. Will change vanc to azithromycin. Will follow blood cultures, respiratory compromise, overall strength and clinical course. Status: Acute (2) Acute kidney injury: Problem details: Due to acute illness. Improving. Status: Acute (3) Hypokalemia: Problem details: Replace and trend Status: Acute (4) Tremor: Problem details: Most likely explanation is olanzapine/antipsychotic. Continue outpatient monitoring with outpatient mental health provider Status: Acute (5) Type 2 diabetes mellitus without complication: Problem details: Will follow blood glucose levels Status: Acute (6) Invasive ductal carcinoma of breast: Problem details: Grade 3 ER/TX(+) HER2(-) pT1c N1a invasive ductal carcinoma, Oncotype DX score 30 Bilateral mastectomy, 03/01/2022 -admitted 06/02/2022 with pneumonia status post 2 rounds of chemotherapy Status: Acute (7) Breast cancer metastasized to axillary lymph node: Problem details: Undergoing chemotherapy, most 05/24/2022 Status: Acute Subjective Date Seen: 06/02/22 Interval history: Daily Progress Note - Hospital Medicine Day #: 2 CC: KEY, weakness, concern for possible sepsis, status post chemotherapy for known breast cancer OVERNIGHT UPDATES FROM STAFF & MED, LAB, IMAGING UPDATES -received fluids overnight. Patient still complains of weak legs and not feeling well. Complaining of stomach cramping. Passing gas has not really helped. No real appetite. Afebrile with a T-max of 99.4? - no vomiting or diarrhea. -called from the lab for 1 positive blood culture, Gram-positive growth within 24 hours -repeated blood cultures so those are pending -mildly neutropenic. ANC 2089 Hemoglobin is down to 9.2, likely hemodilutional Platelet counts 72 K Potassium 3.3, creatinine has improved from 1.8-0.9 Magnesium is low normal Liver function tests are reassuring. CRP is down trending, pro count normal CT abdomen pelvis today 1. Mild ground-glass opacities involving the right upper lobe are suspicious for pneumonia. 2. No acute abnormality or evidence of infection in the abdomen or pelvis. 3. Enlargement of the main pulmonary artery suggestive of pulmonary arterial hypertension. Objective: Vitals: see above Lungs: Clear. Cardiac: S1S2. Disposition/Potential discharge - Likely to return to previous living situation. Total time is 35 minutes with greater than 50% spent in counseling and coordination of care. Exam Const: Vital Signs, click to edit/add: Vital Signs - 24 hr 06/01/22 19:00 06/01/22 23:00 06/02/22 03:00 Temperature 98.6 F 97.9 F 98.2 F Pulse Rate Pulse Rate [Left B rachial] 84 81 97 Respiratory Rate 18 18 18 Blood Pressure [Le ft Arm] 97/68 101/74 109/67 Pulse Oximetry 91 92 90 Oxygen Delivery Me thod Room Air Room Air Room Air 06/02/22 08:03 06/02/22 08:04 06/02/22 12:36 Temperature 99.7 F H 99.4 F Pulse Rate 83 Pulse Rate [Left B rachial] 86 79 Respiratory Rate 24 20 Blood Pressure [Le ft Arm] 109/58 L 117/85 Pulse Oximetry 90 90 Oxygen Delivery Me thod Room Air Room Air Labs Labs: Laboratory Results - last 24 hr 06/01/22 06/02/22 06/02/22 11:15 06:23 06:23 WBC 3.35 L RBC 3.16 L Hgb 9.2 L Hct 28.2 L MCV 89 MCH 29 MCHC 33 RDW Coeff of Derek 13.0 Plt Count 72 L Neut % (Auto) 62.4 Lymph % (Auto) 8.1 L [place] % (Auto) 11.9 H Eos % (Auto) 0.6 Baso % (Auto) 0.3 Neut # (Auto) 2.10 Lymph # (Auto) 0.30 L [place] # (Auto) 0.40 Eos # (Auto) 0.00 Baso # (Auto) 0.00 Diff Slide Review Acceptable Review Sodium 136 Potassium 3.3 L Chloride 111 Carbon Dioxide 23 BUN 9 Creatinine 0.9 Estimated Creat Clear 49.00 Estimated GFR 69 Glucose 167 H Calcium 7.7 L Magnesium 1.5 C-Reactive Protein 17.9 H Procalcitonin 0.16
[2022-06-02] MEDS: MELATONIN 3 MG TABLET PO (19:28)
[2022-06-02] MEDS: ATORVASTATIN 10 MG TABLET 20 MG PO (19:28)
[2022-06-02] MEDS: AZITHROMYCIN 250 MG TABLET 500 MG PO (19:29)
[2022-06-02] MEDS: QUETIAPINE 100 MG TABLET 200 MG PO (19:29)
--- NOTE | 2022-06-02 22:16 | PC.NURSE ---
Shift [id number]- Patient appears weak. She notes some abdominal pain this afternoon- declines medication. She also states she is a little nauseous this evening, though declines medication. Daughter given update via phone. Per daughters request, patient is offered ensure. Patient does not want, but agrees that tomorrow. She also does not want to do any PM cares, though she states she'd like to do those things in the AM. IV's to arm discontinued due to infiltration- IV to foot utilized to complete administrations. She is up to bedside commode (pivot). Appetite is poor.
[2022-06-03] VITALS (10 sets, daily range): BP systolic 101–136; BP diastolic 58–98; PULSE 71–83; RESP 16–18; TEMP 36.1–37.3; O2SAT 92–97
[2022-06-03] MEDS: PIPERACILLIN/TAZOBACTAM 3.375 GM in 0.9 % SODIUM CHLORIDE Mini-bag 100 ML IVPB ×4 (00:01→21:23)
--- NOTE | 2022-06-03 05:09 | PC.NURSE ---
Shift note: Pt is doing well with A1, walker and GB to and from BR. NSR with 1st degree HB has been recorded on tele reading. O2>90% on room air, denied pain, SOB, and cough. Pt appears to have regained strength compared to yesterday. No fall attempt and self-transfer noted. Uses call light well and able to make needs known.
[2022-06-03 08:19] LABS: HCO3 VBG 25 mmol/L (21-28); Ionized Calcium* 1.05 mmol/L (1.11-1.30); PCO2 VBG 39 mmHG (40-50); PO2 VBG 38.4 mmHG (25-47); pH VBG 7.422 (7.32-7.43)
[2022-06-03 08:26] LABS: Basophils Percent Auto 0.2 % (0.0-3.0); Eosinophils Percent Auto 0.7 % (0.0-7.0); Hematocrit 25.7 % (33.0-51.0); Hemoglobin* 8.6 gm/dL (12.0-16.0); Immature Granulocytes Pct Auto 13.4 %; Lymphocytes Percent Auto 7.3 % (20-44); Mean Corpuscular HGB Conc 34 gm/dL (32-36); Mean Corpuscular Hemoglobin 30 pg (26-34); Mean Corpuscular Volume 88 fL (80-100); Monocytes Percent Auto 10.8 % (0.0-11.0); Neutrophils Percent Auto 67.6 % (42.0-72.0); Platelet Count* 76 K/uL (140-440); RDW Coefficient of Variation % 13.1 % (11.5-15.5); Red Blood Count 2.92 m/uL (4.00-5.20); White Blood Count* 4.26 K/uL (4.50-11.00)
[2022-06-03 08:34] LABS: Slide Review Reflex No
[2022-06-03 08:43] LABS: Albumin* 2.5 g/dL (3.3-5.0); Chloride* 109 mmol/L (96-114); Sodium* 135 mmol/L (135-149)
[2022-06-03 08:44] LABS: Potassium* 3.3 mmol/L (3.6-5.1)
[2022-06-03 08:46] LABS: Creatinine* 0.7 mg/dL (0.5-1.5); Estimated Glomerular Filt Rate 93 ml/min
[2022-06-03 08:47] LABS: Alanine Aminotransferase* 10 U/L (4-35); Alkaline Phosphatase* 53 U/L (40-150); Aspartate Amino Transferase* 22 U/L (12-35); Bilirubin Total* 0.8 mg/dL (0.1-1.5); Blood Urea Nitrogen* 6 mg/dL (7-30); Calcium* 7.5 mg/dL (8.4-10.6); Carbon Dioxide* 23 mmol/L (20-32); Glucose* 109 mg/dL (60-115)
[2022-06-03 08:48] LABS: Magnesium* 1.3 mg/dL (1.5-2.6)
[2022-06-03 09:04] LABS: Procalcitonin* 0.08 ng/mL (<0.50)
[2022-06-03 09:12] LABS: C Reactive Protein* 16.5 mg/dL (0.5-1.0)
--- NOTE | 2022-06-03 10:09 | PM.IMPN1 ---
Progress Note: A&P Assessment and plan (1) Pneumonia: Problem details: -right upper lobe. Zosyn and vanc started this morning. Will change vanc to azithromycin. Will follow blood cultures, respiratory compromise, overall strength and clinical course. Status: Acute (2) Acute kidney injury: Problem details: Due to acute illness. Improving. Status: Acute (3) Hypokalemia: Problem details: Replace and trend Status: Acute (4) Tremor: Problem details: Most likely explanation is olanzapine/antipsychotic. 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: Problem details: Undergoing chemotherapy, most 05/24/2022 Status: Acute (8) Antineoplastic chemotherapy induced anemia: Problem details: 1 unit transfusion of prbc's ordered 06/03/22 Status: Acute (9) Hypomagnesemia: Problem details: mag infusion 06/03/22 Status: Acute (10) Hypocalcemia: Problem details: tums 500mg TID w/food Status: Acute Subjective Date Seen: 06/03/22 Interval history: Daily Progress Note - Hospital Medicine Day #: 3 CC: KEY, weakness, concern for possible sepsis, status post chemotherapy for known breast cancer OVERNIGHT UPDATES FROM STAFF & MED, LAB, IMAGING UPDATES -feels weak in the legs. coughing. is concerned she is not getting better. CAP CT yesterday revealed a RUL pneumonia. she is on RA. we have zosyn and azithromycin ordered. s/p 1 dose of vanc. 101/58. Pulse 76. Respirations 16. Afebrile. O2 sat 92%. On room air. Hemoglobin is drifting down since admission. Is now 8.6. However, her white blood cell count is coming up. Today is 4.26. Her platelets are stable and up just a little from yesterday. INR 1.21 PH 7.4 Potassium 3.3, otherwise unremarkable BMP Her Mag is a little low today as is her ionized calcium. Her CRP is down trending just slightly She has a couple of sets of blood cultures that are now drawn and pending. Were still following the 1st bottle that had Gram-positive growth. CT abdomen pelvis 06/02/22 1. Mild ground-glass opacities involving the right upper lobe are suspicious for pneumonia. 2. No acute abnormality or evidence of infection in the abdomen or pelvis. 3. Enlargement of the main pulmonary artery suggestive of pulmonary arterial hypertension. Objective: alopecia; pale. disshelved. Vitals: see above Lungs: no significant wheezes Cardiac: S1S2. Disposition/Potential discharge - Likely to return to previous living situation. Total time is 35 minutes with greater than 50% spent in counseling and coordination of care. Exam Const: Vital Signs, click to edit/add: Vital Signs - 24 hr 06/02/22 12:36 06/02/22 15:35 06/02/22 19:05 Temperature 99.4 F 98.5 F 98 F Pulse Rate [Left B rachial] 79 80 85 Respiratory Rate 20 18 16 Blood Pressure [Le ft Arm] 117/85 120/68 123/65 Pulse Oximetry 90 92 93 Oxygen Delivery Me thod Room Air Room Air Room Air 06/02/22 23:00 06/03/22 03:00 Temperature 97.9 F 97.9 F Pulse Rate [Left B rachial] 67 76 Respiratory Rate 16 16 Blood Pressure [Le ft Arm] 108/44 L 101/58 L Pulse Oximetry 93 92 Oxygen Delivery Me thod Room Air Room Air Labs Labs: Laboratory Results - last 24 hr 06/03/22 06/03/22 06/03/22 07:45 07:45 07:45 WBC 4.26 L RBC 2.92 L Hgb 8.6 L Hct 25.7 L MCV 88 MCH 30 MCHC 34 RDW Coeff of Derek 13.1 Plt Count 76 L Neut % (Auto) 67.6 Lymph % (Auto) 7.3 L Hernando % (Auto) 10.8 Eos % (Auto) 0.7 Baso % (Auto) 0.2 Neut # (Auto) 2.90 Lymph # (Auto) 0.30 L Hernando # (Auto) 0.50 Eos # (Auto) 0.00 Baso # (Auto) 0.00 VBG pH 7.422 VBG pCO2 39 L VBG pO2 38.4 VBG HCO3 25 Sodium 135 Potassium 3.3 L Chloride 109 Carbon Dioxide 23 BUN 6 L Creatinine 0.7 Estimated Creat Clear 49.00 Estimated GFR 93 Glucose 109 Calcium 7.5 L Ionized Calcium Ronnell 1.05 L Magnesium 1.3 L Total Bilirubin 0.8 AST 22 ALT 10 Alkaline Phosphatase 53 C-Reactive Protein 16.5 H Total Protein 5.0 L Albumin 2.5 L Procalcitonin 0.08
[2022-06-03] MEDS: BUSPIRONE 10 MG TABLET 7.5 MG PO ×2 (11:41→21:15)
[2022-06-03] MEDS: ASCORBIC ACID 500 MG TABLET PO (11:41)
[2022-06-03] MEDS: POTASSIUM CHLORIDE 10 MEQ CAPSULE ER PO (11:41)
[2022-06-03] MEDS: lamoTRIgine 100 MG TABLET PO ×2 (11:41→21:17)
[2022-06-03] MEDS: QUETIAPINE 25 MG TABLET 50 MG PO (11:42)
[2022-06-03] MEDS: 0.9 % SODIUM CHLORIDE 1000 ml 1,000 ML 75 ML IV ×2 (11:42→23:27)
[2022-06-03] MEDS: carvediloL 6.25 MG TABLET 3.125 MG PO ×2 (11:42→21:17)
[2022-06-03] MEDS: SODIUM CHLORIDE 0.9 % (FLUSH) 10 ML SYRINGE 5 ML IVF (11:43)
[2022-06-03] MEDS: CALCIUM CARBONATE 500 MG CHEW PO ×2 (15:06→21:17)
[2022-06-03] MEDS: AZITHROMYCIN 250 MG TABLET PO (16:37)
[2022-06-03] MEDS: MAGNESIUM SULFATE 2 GM/50 ML PIGGYBACK IVPB (16:37)
[2022-06-03] MEDS: OXYCODONE 5 MG TABLET 2.5 MG PO (16:43)
[2022-06-03] MEDS: ATORVASTATIN 10 MG TABLET 20 MG PO (21:15)
[2022-06-03] MEDS: QUETIAPINE 100 MG TABLET 200 MG PO (21:18)
[2022-06-04] VITALS (7 sets, daily range): BP systolic 104–134; BP diastolic 51–76; PULSE 63–79; RESP 16–22; TEMP 36.7–37.4; O2SAT 91–97
[2022-06-04] MEDS: PIPERACILLIN/TAZOBACTAM 3.375 GM in 0.9 % SODIUM CHLORIDE Mini-bag 100 ML IVPB ×4 (03:24→21:38)
--- NOTE | 2022-06-04 04:58 | PC.NURSE ---
Shift note: Pt appears weaker tonight, She refuse super but blood glucose at 2100 was 90mg/dl. Pt accepted to be given put-in at 0330. Pt is vitally stable. Has been sleeping most of the shift. Attempted to use the bedside commode but could not any urine. Denied pain, SOB, and cough.
[2022-06-04 06:17] LABS: HCO3 VBG 25 mmol/L (21-28); PCO2 VBG 40 mmHG (40-50); PO2 VBG 41.6 mmHG (25-47)
[2022-06-04 06:30] LABS: Basophils Absolute Auto 0.01 K/uL (0.00-0.30); Basophils Percent Auto 0.2 % (0.0-3.0); Eosinophils Absolute Auto 0.02 K/uL (0.00-0.50); Eosinophils Percent Auto 0.4 % (0.0-7.0); Hematocrit 28.1 % (33.0-51.0); Hemoglobin* 9.6 gm/dL (12.0-16.0); Immature Granulocytes Abs Auto 0.49 K/uL (0.00-0.30); Immature Granulocytes Pct Auto 9.7 %; Lymphocytes Percent Auto 8.3 % (20-44); Mean Corpuscular HGB Conc 34 gm/dL (32-36); Mean Corpuscular Hemoglobin 30 pg (26-34); Mean Corpuscular Volume 87 fL (80-100); Monocytes Percent Auto 9.7 % (0.0-11.0); Neutrophils Absolute Auto 3.64 K/uL (1.7-7.0); Neutrophils Percent Auto 71.7 % (42.0-72.0); Platelet Count* 78 K/uL (140-440); RDW Coefficient of Variation % 13.3 % (11.5-15.5); Red Blood Count 3.24 m/uL (4.00-5.20); Slide Review Reflex No; White Blood Count* 5.07 K/uL (4.50-11.00)
[2022-06-04 06:38] LABS: Chloride* 107 mmol/L (96-114); Sodium* 134 mmol/L (135-149)
[2022-06-04 06:40] LABS: Creatinine* 0.7 mg/dL (0.5-1.5); Estimated Glomerular Filt Rate 93 ml/min
[2022-06-04 06:41] LABS: Blood Urea Nitrogen* 6 mg/dL (7-30); Carbon Dioxide* 25 mmol/L (20-32); Glucose* 117 mg/dL (60-115)
[2022-06-04 06:42] LABS: Calcium* 7.4 mg/dL (8.4-10.6); Magnesium* 1.7 mg/dL (1.5-2.6)
[2022-06-04 06:58] LABS: Procalcitonin* 0.07 ng/mL (<0.50)
[2022-06-04 06:59] LABS: C Reactive Protein* 16.5 mg/dL (0.5-1.0); Potassium* 2.8 mmol/L (3.6-5.1)
[2022-06-04] MEDS: LOPERAMIDE HCL 2 MG CAPSULE PO ×2 (09:11→18:18)
[2022-06-04] MEDS: POTASSIUM BICARB 25 MEQ EFFERVESCENT TAB PO ×7 (09:11→21:43)
[2022-06-04] MEDS: QUETIAPINE 25 MG TABLET 50 MG PO (09:11)
[2022-06-04] MEDS: POTASSIUM CHLORIDE 10 MEQ CAPSULE ER PO (09:11)
[2022-06-04] MEDS: ASCORBIC ACID 500 MG TABLET PO (09:12)
[2022-06-04] MEDS: carvediloL 6.25 MG TABLET 3.125 MG PO ×2 (09:12→21:35)
[2022-06-04] MEDS: CALCIUM CARBONATE 500 MG CHEW PO ×3 (09:12→21:36)
[2022-06-04] MEDS: BUSPIRONE 10 MG TABLET 7.5 MG PO ×2 (09:12→21:36)
[2022-06-04] MEDS: SODIUM CHLORIDE 0.9 % (FLUSH) 10 ML SYRINGE 5 ML IVF (09:18)
[2022-06-04] MEDS: lamoTRIgine 100 MG TABLET PO ×2 (09:28→21:35)
--- NOTE | 2022-06-04 11:04 | P.IMPN_ITS ---
Progress Note: A&P Assessment and plan (1) Pneumonia: Problem details: - right upper lobe, noted on CT 06/02/22 - on Zosyn (06/02) and azithromycin (06/03) Status: Acute (2) Acute kidney injury: Problem details: - Due to acute illness, creatinine peaked at 1.8, now within normal limits Status: Acute (3) Weakness: Problem details: - profound - appreciate input from PT and OT; may require TCU upon discharge Status: Acute (4) Positive blood culture: Problem details: - + Staph epidermidis on admission - further blood cultures NGTD Status: Acute (5) Hypokalemia: Problem details: - Replace and trend Status: Acute (6) Tremor: Problem details: - most likely explanation is olanzapine/antipsychotic. Continue outpatient monitoring with outpatient mental health provider Status: Acute (7) Type 2 diabetes mellitus without complication: Problem details: - Accu-Cheks and SSI, BG has been between 90-121 since admission Status: Acute (8) Invasive ductal carcinoma of breast: Problem details: - Grade 3 ER/[place](+) HER2(-) pT1c N1a invasive ductal carcinoma, Oncotype DX score 30 - Bilateral mastectomy, 03/01/2022 Status: Acute (9) Breast cancer metastasized to axillary lymph node: Problem details: - Undergoing chemotherapy, most recently 05/24/2022 Status: Acute (10) Antineoplastic chemotherapy induced anemia: Problem details: - Has also been pancytopenic during stay - 1 unit transfusion of PRBCs 06/03/22 Status: Acute (11) Hypomagnesemia: Problem details: - replace and follow Status: Acute (12) Hypocalcemia: Problem details: - tums 500mg TID w/food - received IV calcium replacement on 06/04 Status: Acute (13) Hypoalbuminemia due to protein-calorie malnutrition: Problem details: - noted to have edema as result of this as well - patient declines nutrition referral Status: Acute Plan - continue antibiotics and therapies - SCDs for prophylaxis. Unable to wear Amadeo hose as right foot being utilized as an IV site; deferring pharmacologic prophylaxis given thrombocytopenia - TCU vs home with increased services when medically appropriate for d/c. Appreciate assistance from PT, OT, and SW Subjective Date Seen: 06/04/22 Interval history: Denita was admitted to the hospital on 06/01 for weakness, KEY, clinical concern for sepsis. Since admission, her first Blood Culture has grown Staph Epidermidis, rest of her Blood cultures exhibit NGTD. Denita continues to feel very weak, working with our therapy teams. She is also tolerating antibiotics for her RUL pneumonia, noted on CT scan. Renal function improving, continues to require supplementation for potassium, calcium, and magnesium. Exam Narrative: Exam Narrative: GEN: Alert and sitting comfortably in bedside chair, appears chronically ill HEENT: EOMIs bilaterally, no scleral icterus CV: RRR, No concerning murmurs, rubs, or gallops R: LCTA bilaterally without concerning wheezing. Air movement adequate Ext: IV in place R foot, 2+ edema bilateral feet Skin: Erythematous kyleigh R hand (present prior to admission, patient thinks it may be a burn), no other concerning skin lesions noted Neuro: No focal deficits Psych: Appropriate Const: Vital Signs, click to edit/add: Vital Signs - 24 hr 06/03/22 13:08 06/03/22 13:15 06/03/22 14:00 Temperature 97 F L 98.1 F 98 F Pulse Rate 74 73 73 Pulse Rate [Left B rachial] Respiratory Rate 18 18 18 Blood Pressure 129/70 127/98 H 136/78 Blood Pressure [Le ft Arm] Pulse Oximetry 97 96 94 Oxygen Delivery Me thod 06/03/22 15:00 06/03/22 15:30 06/03/22 13:08 Temperature 98 F 98.1 F 97 F L Pulse Rate 79 83 Pulse Rate [Left B rachial] 74 Respiratory Rate 18 18 18 Blood Pressure 133/74 129/72 Blood Pressure [Le ft Arm] 129/70 Pulse Oximetry 96 95 [facility] 06/03/22 15:00 06/03/22 15:00 06/03/22 15:00 Temperature 98 F Pulse Rate 82 Pulse Rate [Left B rachial] 79 79 Respiratory Rate 18 18 Blood Pressure Blood Pressure [Le ft Arm] 133/74 Pulse Oximetry 96 [facility] 06/03/22 19:00 06/03/22 23:00 06/03/22 23:00 Temperature 99.1 F 98.9 F Pulse Rate 71 Pulse Rate [Left B rachial] 74 71 Respiratory Rate 16 16 Blood Pressure Blood Pressure [Le ft Arm] 125/60 108/74 Pulse Oximetry 95 95 Oxygen Delivery Me thod Room Air Room Air 06/04/22 03:00 06/04/22 07:00 06/04/22 07:00 Temperature 98.9 F 98.0 F Pulse Rate Pulse Rate [Left B rachial] 69 68 68 Respiratory Rate 16 16 16 Blood Pressure Blood Pressure [Le ft Arm] 104/60 125/58 L Pulse Oximetry 95 93 Oxygen Delivery Me thod Room Air Room Air Labs Labs: Laboratory Results - last 24 hr 06/03/22 06/04/22 06/04/22 11:00 05:48 05:48 WBC 5.07 RBC 3.24 L Hgb 9.6 L Hct 28.1 L MCV 87 MCH 30 MCHC 34 RDW Coeff of Derek 13.3 Plt Count 78 L Neut % (Auto) 71.7 Lymph % (Auto) 8.3 L Stevens % (Auto) 9.7 Eos % (Auto) 0.4 Baso % (Auto) 0.2 Neut # (Auto) 3.64 Lymph # (Auto) 0.40 L Stevens # (Auto) 0.50 Eos # (Auto) 0.02 Baso # (Auto) 0.01 VBG pH VBG pCO2 VBG pO2 VBG HCO3 Sodium 134 L Potassium 2.8 L* Chloride 107 Carbon Dioxide 25 BUN 6 L Creatinine 0.7 Estimated Creat Clear 49.00 Estimated GFR 93 Glucose 117 H Calcium 7.4 L Magnesium 1.7 C-Reactive Protein 16.5 H Procalcitonin 0.07 Blood Type O Positive Antibody Screen NEGATIVE Crossmatch ([facility]) See Detail 06/04/22 05:48 WBC RBC Hgb Hct MCV MCH MCHC RDW Coeff of Derek Plt Count Neut % (Auto) Lymph % (Auto) Stevens % (Auto) Eos % (Auto) Baso % (Auto) Neut # (Auto) Lymph # (Auto) Stevens # (Auto) Eos # (Auto) Baso # (Auto) VBG pH 7.410 VBG pCO2 40 VBG pO2 41.6 VBG HCO3 25 Sodium Potassium Chloride Carbon Dioxide BUN Creatinine Estimated Creat Clear Estimated GFR Glucose Calcium Magnesium C-Reactive Protein Procalcitonin Blood Type Antibody Screen Crossmatch ([facility])
[2022-06-04] MEDS: 0.9 % SODIUM CHLORIDE 1000 ml 1,000 ML 75 ML IV (14:39)
[2022-06-04 15:05] LABS: Potassium* 3.2 mmol/L (3.6-5.1)
[2022-06-04] MEDS: MAGNESIUM SULFATE 2 GM/50 ML PIGGYBACK IVPB (16:23)
[2022-06-04] MEDS: AZITHROMYCIN 250 MG TABLET PO (17:51)
--- NOTE | 2022-06-04 18:47 | PC.NURSE ---
End of shift note: Pt. alert and oriented. Some periodic confusion at times. Pt. denies pain, SOB, N/V. Pt's VSS. 93% on RA. Pt. uses walker and GB to bedside commode or chair. Diarrhea x2 today and passing gas, PRN Imodium administered. Blood sugars have been below the sliding scale parameters.
[2022-06-04] MEDS: ATORVASTATIN 10 MG TABLET 20 MG PO (21:37)
[2022-06-04] MEDS: MELATONIN 3 MG TABLET PO (21:38)
[2022-06-04] MEDS: QUETIAPINE 100 MG TABLET 200 MG PO (21:42)
[2022-06-05] VITALS (8 sets, daily range): BP systolic 110–132; BP diastolic 58–86; PULSE 62–73; RESP 14–24; TEMP 36.5–37; O2SAT 90–93; BMI 29.3
[2022-06-05] MEDS: PIPERACILLIN/TAZOBACTAM 3.375 GM in 0.9 % SODIUM CHLORIDE Mini-bag 100 ML IVPB ×4 (03:28→20:54)
[2022-06-05 06:33] LABS: Ionized Calcium* 1.04 mmol/L (1.11-1.30)
[2022-06-05] MEDS: 0.9 % SODIUM CHLORIDE 1000 ml 1,000 ML 75 ML IV ×2 (06:33→20:46)
[2022-06-05 06:42] LABS: Basophils Absolute Auto 0.02 K/uL (0.00-0.30); Basophils Percent Auto 0.4 % (0.0-3.0); Eosinophils Absolute Auto 0.01 K/uL (0.00-0.50); Eosinophils Percent Auto 0.2 % (0.0-7.0); Hematocrit 28.9 % (33.0-51.0); Hemoglobin* 9.9 gm/dL (12.0-16.0); Immature Granulocytes Abs Auto 0.31 K/uL (0.00-0.30); Immature Granulocytes Pct Auto 6.2 %; Lymphocytes Percent Auto 8.8 % (20-44); Mean Corpuscular HGB Conc 34 gm/dL (32-36); Mean Corpuscular Hemoglobin 30 pg (26-34); Mean Corpuscular Volume 86 fL (80-100); Neutrophils Percent Auto 76.4 % (42.0-72.0); RDW Coefficient of Variation % 13.3 % (11.5-15.5); Red Blood Count 3.36 m/uL (4.00-5.20)
--- NOTE | 2022-06-05 06:50 | PC.NURSE ---
[id number]: Patient cooperative with cares. Fatigued and weak. Incontinent of bowel d/t loose stool. Appeared to rest well during noc. Denies pain. Agreeable to move to chair this a.m. and tolerated well with A2/walker/GB. Afebrile. SOB w/movement.
[2022-06-05 06:55] LABS: Chloride* 105 mmol/L (96-114); Potassium* 3.8 mmol/L (3.6-5.1); Sodium* 132 mmol/L (135-149)
[2022-06-05 06:58] LABS: Blood Urea Nitrogen* 4 mg/dL (7-30); Carbon Dioxide* 25 mmol/L (20-32); Creatinine* 0.6 mg/dL (0.5-1.5); Estimated Glomerular Filt Rate 97 ml/min
[2022-06-05 06:59] LABS: Calcium* 7.4 mg/dL (8.4-10.6); Glucose* 98 mg/dL (60-115); Magnesium* 1.8 mg/dL (1.5-2.6)
[2022-06-05 07:17] LABS: C Reactive Protein* 17.6 mg/dL (0.5-1.0)
[2022-06-05 07:31] LABS: Platelet Count* 90 K/uL (140-440)
[2022-06-05 07:32] LABS: Slide Review Reflex Yes
[2022-06-05 07:37] LABS: Slide Review Acceptable Review (Acceptable)
[2022-06-05] MEDS: lamoTRIgine 100 MG TABLET PO ×2 (08:38→20:50)
[2022-06-05] MEDS: ASCORBIC ACID 500 MG TABLET PO (08:38)
[2022-06-05] MEDS: CALCIUM CARBONATE 500 MG CHEW PO ×3 (08:38→20:50)
[2022-06-05] MEDS: POTASSIUM CHLORIDE 10 MEQ CAPSULE ER PO (08:38)
[2022-06-05] MEDS: QUETIAPINE 25 MG TABLET 50 MG PO (08:44)
[2022-06-05] MEDS: BUSPIRONE 10 MG TABLET 7.5 MG PO ×2 (08:44→20:49)
[2022-06-05] MEDS: carvediloL 6.25 MG TABLET 3.125 MG PO ×2 (08:47→20:50)
--- NOTE | 2022-06-05 09:08 | CRLHL7_ITS ---
For Patients: As a result of the Century Cures Act, medical imaging exams and procedure reports are released immediately into your electronic medical record. You may view this report before your referring provider. If you have questions, please contact your health care provider. Indication: Follow-up pneumonia Comparison: Two-view chest March 31, 2021 Technique: Single AP view chest Findings: There is hyperinflation and chronic interstitial change. There is no focal consolidation, effusion, or pneumothorax. The cardiomediastinal silhouette is within normal limits. The bony thorax is grossly intact. Impression: Hyperinflation and chronic interstitial changes with mildly increased interstitial markings likely representing minimal bronchial thickening and/or pulmonary vascular congestion. No dense consolidation is appreciated. Dictated by Tacos Camara MD @ 06/05/2022 10:20:37 AM (Electronically Signed)
--- NOTE | 2022-06-05 10:04 | PC.SOCIAL ---
Spoke with pt.'s daughter Kathy whom pt. lives with. Pt. will resume her home care services at discharge. [facility] had only been out one time before pt. was hospitalized. [facility] will resume nursing, PT, OT, and a [employer] 2x a week. Daughter Kathy is pleased the home care will resume. [facility] will need a resumption of home care order when pt. is ready for discharge.
--- NOTE | 2022-06-05 12:03 | PM.IMPN1 ---
Progress Note: A&P Assessment and plan (1) Pneumonia: Problem details: - right upper lobe, noted on CT 06/02/22 - on Zosyn (06/02) and azithromycin (06/03) - repeat chest x-ray 06/05 exhibits improvement Status: Acute (2) Acute kidney injury: Problem details: - Due to acute illness. Creatinine peaked at 1.8, now within normal limits Status: Acute (3) Weakness: Problem details: - profound - appreciate input from PT and OT - lives with daughter Veronica who would be present for assistance and transfers at home as needed Status: Acute (4) Positive blood culture: Problem details: - + Staph epidermidis on admission - further blood cultures NGTD Status: Acute (5) Hypokalemia: Problem details: - Replace and trend; within normal limits 06/05 Status: Acute (6) Tremor: Problem details: - most likely explanation is olanzapine/antipsychotic; chronic symptom, per patient. Continue outpatient monitoring with outpatient mental health provider Status: Acute (7) Type 2 diabetes mellitus without complication: Problem details: - Accu-Cheks and SSI, BG has remained <200 since admission Status: Acute (8) Invasive ductal carcinoma of breast: Problem details: - Grade 3 ER/MT(+) HER2(-) pT1c N1a invasive ductal carcinoma, Oncotype DX score 30 - Bilateral mastectomy, 03/01/2022 Status: Acute (9) Breast cancer metastasized to axillary lymph node: Problem details: - Undergoing chemotherapy, most recently 05/24/2022 Status: Acute (10) Antineoplastic chemotherapy induced anemia: Problem details: - Has also been pancytopenic during stay - 1 unit transfusion of PRBCs 06/03/22 Status: Acute (11) Hypomagnesemia: Problem details: - replace and follow Status: Acute (12) Hypocalcemia: Problem details: - tums 500mg TID w/food - received IV calcium replacement on 06/04 and 06/05 Status: Acute (13) Hypoalbuminemia due to protein-calorie malnutrition: Problem details: - noted to have edema as result of this as well Status: Acute Plan - per above - continue antibiotics - deferring pharmacological prophylaxis given thrombocytopenia, SCDs - home with daughter Veronica + HH when medically stable, likely in 1-2 days - Veronica updated by phone, questions answered Subjective Date Seen: 06/05/22 Interval history: Denita was admitted to the hospital on 06/01 for weakness, KEY, clinical concern for sepsis. Her admission blood culture grew Staph epidermidis, repeat blood cultures have remained negative. Denita continues to work with our therapy teams, still feels profoundly weak but only requiring 1 person assist. She is not appropriate for TCU placement given active chemotherapy. No acute events overnight. Afebrile. Her labs continue to improve, including her electrolytes. Exam Narrative: Exam Narrative: GEN: Alert, sitting in bedside chair, appears chronically ill HEENT: EOMIs bilaterally, no scleral icterus, + conjunctival pallor CV: RRR, No concerning murmurs, rubs, or gallops R: LCTA bilaterally without concerning wheezing, rales, or rhonchi Ext: wwp, + edema of bilateral ankles, symmetric Skin: No concerning skin lesions or rashes on exposed skin Neuro: Intermittent fine tremor of bilateral upper extremities, stable on chronic Psych: Appropriate Const: Vital Signs, click to edit/add: Vital Signs - 24 hr 06/04/22 15:00 06/04/22 15:00 06/04/22 15:00 Temperature 98.0 F Pulse Rate 71 Pulse Rate [Left B rachial] 77 77 Pulse Rate [Pulse Oximeter] Respiratory Rate 16 16 Blood Pressure [Le ft Arm] 127/76 Pulse Oximetry 93 Oxygen Delivery Me thod Room Air 06/04/22 19:35 06/04/22 22:02 06/04/22 23:00 Temperature 99.4 F 98.1 F Pulse Rate 73 Pulse Rate [Left B rachial] 79 76 Pulse Rate [Pulse Oximeter] Respiratory Rate 22 22 Blood Pressure [Le ft Arm] 134/72 128/55 L Pulse Oximetry 91 91 Oxygen Delivery Me thod Room Air Room Air 06/05/22 04:30 06/05/22 07:24 06/05/22 07:24 Temperature 98.0 F Pulse Rate Pulse Rate [Left B rachial] 70 Pulse Rate [Pulse Oximeter] Respiratory Rate 22 14 14 Blood Pressure [Le ft Arm] 113/64 Pulse Oximetry 91 Oxygen Delivery Sc thod Room Air 06/05/22 07:32 06/05/22 11:00 Temperature 97.7 F Pulse Rate 71 Pulse Rate [Left B rachial] Pulse Rate [Pulse Oximeter] 62 Respiratory Rate 24 Blood Pressure [Le ft Arm] 116/60 Pulse Oximetry 91 Oxygen Delivery Me thod Room Air Labs Labs: Laboratory Results - last 24 hr 06/04/22 06/05/22 06/05/22 14:45 06:17 06:17 WBC 5.00 RBC 3.36 L Hgb 9.9 L Hct 28.9 L MCV 86 MCH 30 MCHC 34 RDW Coeff of Derek 13.3 Plt Count 90 L Neut % (Auto) 76.4 H Lymph % (Auto) 8.[address] [place] % (Auto) 8.0 Eos % (Auto) 0.2 Baso % (Auto) 0.4 Neut # (Auto) 3.80 Lymph # (Auto) 0.[address] [place] # (Auto) 0.40 Eos # (Auto) 0.01 Baso # (Auto) 0.02 Diff Slide Review Acceptable Review Sodium 132 L Potassium 3.2 L 3.8 Chloride 105 Carbon Dioxide 25 BUN 4 L Creatinine 0.6 Estimated Creat Clear 49.00 Estimated GFR 97 Glucose 98 Calcium 7.4 L Ionized Calcium Ronnell Magnesium 1.8 C-Reactive Protein 17.6 H 06/05/22 06:17 WBC RBC Hgb Hct MCV MCH MCHC RDW Coeff of Derek Plt Count Neut % (Auto) Lymph % (Auto) [place] % (Auto) Eos % (Auto) Baso % (Auto) Neut # (Auto) Lymph # (Auto) [place] # (Auto) Eos # (Auto) Baso # (Auto) Diff Slide Review Sodium Potassium Chloride Carbon Dioxide BUN Creatinine Estimated Creat Clear Estimated GFR Glucose Calcium Ionized Calcium Ronnell 1.04 L Magnesium C-Reactive Protein
--- NOTE | 2022-06-05 15:25 | PC.SOCIAL ---
Met with pt. after she talked to her nurse from [facility] who had concerns about pt. returning home since pt.'s caregiver daughter Kathy has a TBI. Talked with pt. about discharging home with [facility] for PT/OT, nursing and a [employer] 2x a week for bathing (pt. had one home care visit before admitting to the hospital.), vs admitting to a care home. Pt. is adamant she wants to discharge home. Pt. has an Alternative Care nicole through [facility]. Asked if Kathy had contacted her [facility] worker to get assessed for straight medical assistance or the EW waiver for additional services to keep pt. in her home. Pt. thought her daughter had called her worker. Spoke with her daughter Kathy who had not contacted pt.'s financial worker. Called Alena Chiang @ [phone] and left a message requesting a [facility] consultation to see if pt. was eligible for the EW waiver or straight MA to get more assistance at home. Pt. will still plan to discharge home when medically ready for discharge.
--- NOTE | 2022-06-05 17:06 | PC.NURSE ---
Pt calm, quiet, and cooperative through out shift. Pt up to chair and bedside commode through out shift with 2 assist and a walker. Pt has had no pain through out shift. Pt slept through out most of the shift.
[2022-06-05] MEDS: AZITHROMYCIN 250 MG TABLET PO (17:25)
[2022-06-05] MEDS: OXYCODONE 5 MG TABLET 2.5 MG PO (17:25)
--- NOTE | 2022-06-05 18:10 | PC.NURSE ---
Pt complained of pain around supper time. Pt asked for pain medication. See emar.
[2022-06-05] MEDS: ATORVASTATIN 10 MG TABLET 20 MG PO (20:50)
[2022-06-05] MEDS: QUETIAPINE 100 MG TABLET 200 MG PO (20:50)
[2022-06-05] MEDS: MELATONIN 3 MG TABLET PO (20:50)
[2022-06-06] VITALS (7 sets, daily range): BP systolic 101–136; BP diastolic 48–100; PULSE 60–136; RESP 16–24; TEMP 36.6–36.9; O2SAT 90–91
[2022-06-06] MEDS: PIPERACILLIN/TAZOBACTAM 3.375 GM in 0.9 % SODIUM CHLORIDE Mini-bag 100 ML IVPB ×4 (03:38→21:45)
[2022-06-06 06:32] LABS: Ionized Calcium* 1.06 mmol/L (1.11-1.30)
[2022-06-06 06:38] LABS: Basophils Percent Auto 0.3 % (0.0-3.0); Hematocrit 28.1 % (33.0-51.0); Hemoglobin* 9.5 gm/dL (12.0-16.0); Immature Granulocytes Pct Auto 4.2 %; Lymphocytes Percent Auto 11.5 % (20-44); Mean Corpuscular HGB Conc 34 gm/dL (32-36); Mean Corpuscular Hemoglobin 29 pg (26-34); Mean Corpuscular Volume 87 fL (80-100); Monocytes Percent Auto 8.9 % (0.0-11.0); Neutrophils Percent Auto 75.1 % (42.0-72.0); Platelet Count* 70 K/uL (140-440); RDW Coefficient of Variation % 13.5 % (11.5-15.5); Red Blood Count 3.24 m/uL (4.00-5.20); White Blood Count* 3.82 K/uL (4.50-11.00)
[2022-06-06 06:40] LABS: Slide Review Reflex No
--- NOTE | 2022-06-06 06:52 | PC.NURSE ---
[id number]: Patient cooperative with cares. Denies pain. Patient c/o weakness and anxious about returning home, How is my daughter ever going to care for me? Patient encouraged to ambulate more often to build strength and to increase PO intake. Patient ate 1 Jello during this shift. A1/walker/GB. IV to R. foot patent.
[2022-06-06 06:59] LABS: Albumin* 2.4 g/dL (3.3-5.0); Chloride* 105 mmol/L (96-114)
[2022-06-06 07:00] LABS: Potassium* 3.6 mmol/L (3.6-5.1); Sodium* 133 mmol/L (135-149)
[2022-06-06 07:02] LABS: Aspartate Amino Transferase* 32 U/L (12-35); Carbon Dioxide* 27 mmol/L (20-32); Creatinine* 0.6 mg/dL (0.5-1.5); Estimated Glomerular Filt Rate 97 ml/min; Total Protein* 4.8 g/dL (6.0-8.3)
[2022-06-06 07:03] LABS: Alanine Aminotransferase* 13 U/L (4-35); Alkaline Phosphatase* 58 U/L (40-150); Blood Urea Nitrogen* 4 mg/dL (7-30); Calcium* 7.4 mg/dL (8.4-10.6); Glucose* 87 mg/dL (60-115)
--- NOTE | 2022-06-06 07:26 | CRLHL7_ITS ---
For Patients: As a result of the Century Cures Act, medical imaging exams and procedure reports are released immediately into your electronic medical record. You may view this report before your referring provider. If you have questions, please contact your health care provider. Indication: Weakness Technique: Volumetric multidetector CT images of the lumbar spine were obtained without the administration of IV contrast. Comparison: CT chest abdomen and pelvis June 01, 2021 Findings: The lumbar vertebral body heights are grossly stable from remote comparison with minimal endplate Schmorl`s defects, subchondral sclerotic and cystic changes. There is straightening of the normal cervical lordosis with trace retrolisthesis of L2 on L3. There is again seen moderate levo scoliotic deformity of the AP alignment. There are stable degenerative disc changes with disc height loss and marginal osteophyte formation worst at the L2-L3 and L4-L5 levels. There is a large disc osteophyte complex at the L2-L3 level there is moderate spinal canal narrowing at the L4-L5 level. There is no displaced fracture or dislocation. The paraspinous soft tissues are grossly within normal limits. Impression: Stable moderate degenerative changes of the lumbar spine without acute osseous. Please note that all CT scans at this facility use dose modulation, iterative reconstruction, and/or weight-based dosing when appropriate to reduce radiation dose to as low as reasonably achievable. Dictated by Tacos Camara MD @ 06/06/2022 10:21:30 AM (Electronically Signed)
--- NOTE | 2022-06-06 07:27 | PM.IMPN1 ---
Progress Note: A&P Assessment and plan (1) Pneumonia: Problem details: - right upper lobe, noted on CT 06/02/22 - on Zosyn (06/02) and azithromycin (06/03) - repeat chest x-ray 06/05 exhibits improvement - will discharge home on oral antibiotics Status: Acute (2) Acute kidney injury: Problem details: - Due to acute illness. Creatinine peaked at 1.8, now within normal limits Status: Acute (3) Weakness: Problem details: - profound - appreciate input from PT and OT - lives with daughter Veronica who would be present for assistance and transfers at home as needed - CT lumbar spine 06/06: no acute findings or metastases Status: Acute (4) Positive blood culture: Problem details: - + Staph epidermidis on admission - further blood cultures NGTD Status: Acute (5) Hypokalemia: Problem details: - Replace and trend; within normal limits 06/05 Status: Acute (6) Tremor: Problem details: - most likely related to olanzapine/antipsychotic; chronic symptom, per patient. Continue outpatient monitoring with outpatient mental health provider Status: Acute (7) Type 2 diabetes mellitus without complication: Problem details: - Accu-Cheks and SSI, BG has remained <200 since admission Status: Acute (8) Invasive ductal carcinoma of breast: Problem details: - Grade 3 ER/CA(+) HER2(-) pT1c N1a invasive ductal carcinoma, Oncotype DX score 30 - Bilateral mastectomy, 03/01/2022 Status: Acute (9) Breast cancer metastasized to axillary lymph node: Problem details: - Undergoing chemotherapy, most recently 05/24/2022 Status: Acute (10) Antineoplastic chemotherapy induced anemia: Problem details: - Has also been pancytopenic during stay - 1 unit transfusion of PRBCs 06/03/22 Status: Acute (11) Hypomagnesemia: Problem details: - replace and follow Status: Acute (12) Hypocalcemia: Problem details: - tums 500mg TID w/food - has also received IV calcium replacement Status: Acute (13) Hypoalbuminemia due to protein-calorie malnutrition: Problem details: - noted to have edema as result of this as well - seen by Nutrition team Status: Acute Plan - continue current cares - likely home with daughter and resumption of Home Health on 06/07 Subjective Date Seen: 06/06/22 Interval history: Denita was admitted to the hospital on 06/01 for weakness, KEY, and initial clinical concern for sepsis. Blood culture on admission was positive for Staph epidermidis, repeat blood cultures have remained negative. Denita continues to work with our physical and occupational therapy teams, requiring 1 person assist. She is not a candidate for TCU placement given active chemotherapy; current plan is to discharge home with home health assistance. Denita lives with her daughter who was able to assist with ADLs. No acute events overnight. Vital signs remain stable. Besides weakness, Denita has no concerns for the hospitalist team. She specifically denies back pain or incontinence. Exam Narrative: Exam Narrative: GEN: Alert and oriented, appears chronically ill HEENT: + alopecia, EOMIs bilaterally, no scleral icterus CV: S1 S2 R: LCTA bilaterally, air movement adequate Back: no concerning skin findings or ttp over spinous processes Ext: 2+ edema Skin: Erythematous skin lesion R hand (patient thinks this is a burn, happened prior to admission) remains stable Neuro: Nonfocal Psych: Appropriate Const: Vital Signs, click to edit/add: Vital Signs - 24 hr 06/05/22 07:32 06/05/22 11:00 06/05/22 15:55 Temperature 97.7 F Pulse Rate 71 Pulse Rate [Pulse Oximeter] 62 69 Respiratory Rate 24 Blood Pressure [Le ft Arm] 116/60 Pulse Oximetry 91 Oxygen Delivery Me thod Room Air 06/05/22 15:55 06/05/22 16:39 06/05/22 20:37 Temperature 97.9 F 98.6 F Pulse Rate 71 Pulse Rate [Pulse Oximeter] 69 73 Respiratory Rate 18 18 Blood Pressure [Le ft Arm] 132/86 110/80 Pulse Oximetry 93 90 Oxygen Delivery Me thod Room Air Room Air 06/05/22 23:27 06/06/22 03:12 06/06/22 03:00 Temperature 98.2 F Pulse Rate 66 Pulse Rate [Pulse Oximeter] 68 Respiratory Rate 20 18 Blood Pressure [Le ft Arm] 121/58 L Pulse Oximetry 90 Oxygen Delivery Me thod Room Air Labs Labs: Laboratory Results - last 24 hr 06/05/22 06/06/22 06/06/22 06:17 06:12 06:12 WBC 5.00 3.82 L RBC 3.36 L 3.24 L Hgb 9.9 L 9.5 L Hct 28.9 L 28.1 L MCV 86 87 MCH 30 29 MCHC 34 34 RDW Coeff of Derek 13.3 13.5 Plt Count 90 L 70 L Neut % (Auto) 76.4 H 75.1 H Lymph % (Auto) 8.8 L 11.5 L [place] % (Auto) 8.0 8.9 Eos % (Auto) 0.2 0.0 Baso % (Auto) 0.4 0.3 Neut # (Auto) 3.80 2.90 Lymph # (Auto) 0.40 L 0.40 L [place] # (Auto) 0.40 0.30 Eos # (Auto) 0.01 0.00 Baso # (Auto) 0.02 0.00 Diff Slide Review Acceptable Review Sodium 133 L Potassium 3.6 Chloride 105 Carbon Dioxide 27 BUN 4 L Creatinine 0.6 Estimated Creat Clear 49.00 Estimated GFR 97 Glucose 87 Calcium 7.4 L Ionized Calcium Ronnell Total Bilirubin 1.0 AST 32 ALT 13 Alkaline Phosphatase 58 Total Protein 4.8 L Albumin 2.4 L 06/06/22 06:12 WBC RBC Hgb Hct MCV MCH MCHC RDW Coeff of Derek Plt Count Neut % (Auto) Lymph % (Auto) [place] % (Auto) Eos % (Auto) Baso % (Auto) Neut # (Auto) Lymph # (Auto) [place] # (Auto) Eos # (Auto) Baso # (Auto) Diff Slide Review Sodium Potassium Chloride Carbon Dioxide BUN Creatinine Estimated Creat Clear Estimated GFR Glucose Calcium Ionized Calcium Ronnell 1.06 L Total Bilirubin AST ALT Alkaline Phosphatase Total Protein Albumin
[2022-06-06] MEDS: carvediloL 6.25 MG TABLET 3.125 MG PO ×2 (09:19→20:30)
[2022-06-06] MEDS: QUETIAPINE 25 MG TABLET 50 MG PO (09:19)
[2022-06-06] MEDS: POTASSIUM CHLORIDE 10 MEQ CAPSULE ER PO (09:19)
[2022-06-06] MEDS: BUSPIRONE 10 MG TABLET 7.5 MG PO ×2 (09:19→20:28)
[2022-06-06] MEDS: lamoTRIgine 100 MG TABLET PO ×2 (09:20→20:36)
[2022-06-06] MEDS: CALCIUM CARBONATE 500 MG CHEW PO ×3 (09:20→20:31)
[2022-06-06] MEDS: ASCORBIC ACID 500 MG TABLET PO (09:20)
[2022-06-06] MEDS: CALCIUM GLUC 1,000MG/50 ML 1,000 MG/50 ML BAG 100 MG IVPB (11:51)
[2022-06-06] MEDS: 0.9 % SODIUM CHLORIDE 1000 ml 1,000 ML 75 ML IV (11:51)
[2022-06-06] MEDS: ACETAMINOPHEN 500 MG TABLET PO ×2 (15:44→20:31)
[2022-06-06] MEDS: OXYCODONE 5 MG TABLET 2.5 MG PO ×2 (15:44→20:31)
[2022-06-06] MEDS: AZITHROMYCIN 250 MG TABLET PO (16:43)
--- NOTE | 2022-06-06 18:00 | PC.NURSE ---
Addendum entered by Kailee Beach RN 06/06/22 18:54: Tele= NS w/ 1 degree HB and BBB Original Note: End of Shift: Patient pleasant and cooperative. Patient vitally stable, lungs with fine crackles, BS WNL, IV intact. Patient 1 assist, walker, gb. Patient tolerating regular diet, did not eat much for breakfast but had a good lunch and dinner, and had half of 1 ensure. Patient urinating. Patient with pitting edema in right LE. Patient rates pain in knee 7/10, tylenol and oxycodone given once. Patient in chair for meals. Patient has anxiety with ambulating, seems to feel weaker then how she actually moves. Patient's hair washed today. BS's 85, 96, 83.
[2022-06-06] MEDS: QUETIAPINE 100 MG TABLET 200 MG PO (20:28)
[2022-06-06] MEDS: ATORVASTATIN 10 MG TABLET 20 MG PO (20:28)
[2022-06-06] MEDS: MELATONIN 3 MG TABLET PO (20:33)
[2022-06-06] MEDS: SODIUM CHLORIDE 0.9 % (FLUSH) 10 ML SYRINGE 5 ML IVF (20:33)
[2022-06-07] VITALS (8 sets, daily range): BP systolic 114–155; BP diastolic 50–84; PULSE 70–86; RESP 16–20; TEMP 36.4–37.3; O2SAT 80–96
[2022-06-07] MEDS: 0.9 % SODIUM CHLORIDE 1000 ml 1,000 ML 75 ML IV (03:36)
[2022-06-07] MEDS: PIPERACILLIN/TAZOBACTAM 3.375 GM in 0.9 % SODIUM CHLORIDE Mini-bag 100 ML IVPB ×2 (03:37→08:38)
--- NOTE | 2022-06-07 06:31 | PC.NURSE ---
VSS on RA. Patient is alert and oriented x3, able to verbalize needs to staff. Pain managed with PRN Oxycodone 2.5 mg and Tylenol x1. Patient is assist of one with transfers, continent of bowel and bladder. Patient appears stable, call light within reach.
[2022-06-07] MEDS: CALCIUM CARBONATE 500 MG CHEW PO ×2 (08:37→13:26)
[2022-06-07] MEDS: lamoTRIgine 100 MG TABLET PO (08:37)
[2022-06-07] MEDS: ASCORBIC ACID 500 MG TABLET PO (08:37)
[2022-06-07] MEDS: POTASSIUM CHLORIDE 10 MEQ CAPSULE ER PO (08:37)
[2022-06-07] MEDS: QUETIAPINE 25 MG TABLET 50 MG PO (08:37)
[2022-06-07] MEDS: BUSPIRONE 10 MG TABLET 7.5 MG PO (08:38)
[2022-06-07] MEDS: carvediloL 6.25 MG TABLET 3.125 MG PO (08:38)
[2022-06-07] MEDS: SODIUM CHLORIDE 0.9 % (FLUSH) 10 ML SYRINGE 5 ML IVF (08:38)
--- NOTE | 2022-06-07 09:48 | PC.SOCIAL ---
Addendum entered by ONOFRE Mary 06/07/22 17:03: Prior to discharge, ordered home oxygen for pt. Pt agreed with this and requested it be arranged with [facility]. Required informationn was faxed to [employer] and approval for hospital to provide the portable unit stocked by [employer] at the hospital was obtained. Original Note: Discharge planning: Met with pt regarding d/c plan. Pt is aware of discharge planned for today and is expecting to return home. Pt is pleased with plans to resume home care with [facility] at discharge for PT, OT, RN and bathing aid. Provided pt with copy of Important Message from Medicare. PT indicated she is not interested in appealing her discharge. Pt requested social work contact her daughter Kathy, regarding transportation arrangements for today. Called Kathy who arranged for transportation by family friend, Gerri, around 3:00 today. She is aware pt will need assistance getting in and out of the car and that family can provide this. Called [facility], who is aware of discharge today and will resume home care with MD order tomorrow.
--- NOTE | 2022-06-07 10:53 | W.PM.HOT ---
Acute Home Oxygen Therapy Acute Home Oxygen Therapy Provider Note Provider Note: Patient was admitted on 06/02/22 at 13:35 and will be discharging on 06/07/22. Patient is desaturating with SATs of 86% on room air due to pulmonary artery HTN. Alternative therapies have been attempted and have not been successful in maintaining the patient's saturation level above 88%. Supplemental O2 is required. This patient is mobile within the home and requires portability.
[2022-06-07] MEDS: ACETAMINOPHEN 500 MG TABLET PO (13:26)
[2022-06-07] MEDS: OXYCODONE 5 MG TABLET 2.5 MG PO (13:26)
--- NOTE | 2022-06-07 14:48 | P.DS_ITS ---
DS: Providers Provider Date Seen: 06/07/22 Date of admission: 06/02/22 13:35 Primary care physician: Jeet Kumar PA-C Admitting Clinician: Gil Peres MD Consults: OT, PT, Respiratory Therapy Attending Physician on discharge: Karen Ramos MD Date of Discharge: 06/07/22 DS: Diagnosis Discharge Diagnosis (1) Pneumonia: Status: Acute Problem details: - right upper lobe, noted on CT 06/02/22 - completed treatment inpatient with Zosyn (2/) and azithromycin (2/) - repeat chest x-ray 06/05 exhibits improvement (2) Acute kidney injury: Status: Acute Problem details: - Due to acute illness. Creatinine peaked at 1.8, now within normal limits (3) Weakness: Status: Acute Problem details: - profound - appreciate input from PT and OT - lives with daughter Veronica who would be present for assistance and transfers at home as needed - CT lumbar spine 06/06: no acute findings or metastases (4) Positive blood culture: Status: Acute Problem details: - + Staph epidermidis on admission - further blood cultures NGTD (5) Hypokalemia: Status: Acute Problem details: - Replace and trend; within normal limits 06/05 (6) Tremor: Status: Acute Problem details: - most likely related to olanzapine/antipsychotic; chronic symptom, per patient. Continue outpatient monitoring with outpatient mental health provider (7) Type 2 diabetes mellitus without complication: Status: Acute Problem details: - Accu-Cheks and SSI, BG remained <200 since admission (8) Invasive ductal carcinoma of breast: Status: Acute Problem details: - Grade 3 ER/NM(+) HER2(-) pT1c N1a invasive ductal carcinoma, Oncotype DX score 30 - Bilateral mastectomy, 03/01/2022 (9) Breast cancer metastasized to axillary lymph node: Status: Acute Problem details: - Undergoing chemotherapy, most recently 05/24/2022 (10) Antineoplastic chemotherapy induced anemia: Status: Acute Problem details: - also been pancytopenic during stay, iatrogenic - 1 unit transfusion of PRBCs 06/03/22 (11) Hypomagnesemia: Status: Acute Problem details: - replace and follow (12) Hypocalcemia: Status: Acute Problem details: - tums 500mg TID w/food, will continue upon discharge - has also received IV calcium replacement (13) Hypoalbuminemia due to protein-calorie malnutrition: Status: Acute Problem details: - noted to have edema as result of this as well - seen by Nutrition team (14) Pulmonary artery hypertension: Status: Acute Problem details: - noted on admission imaging, not seen on previous TTE - consider follow-up TTE as an outpatient per PCP/Oncology recommendations DS: Summary Hospital Course Hospital Course: Denita is a very pleasant with known metastatic breast cancer who presented to the hospital on 06/01 for weakness. She was found to have a positive blood culture on admission; throughout status was noted to be Staph epidermidis and subsequent cultures remained negative. CT scan on admission exhibited right upper lobe pneumonia, patient completed course of treatment with Zosyn and azithromycin during stay, follow-up chest x- ray revealed improvement. Weakness evaluated by PT and OT; will resume home care upon discharge. TCU stay recommended, patient declined and ultimately discharged home with daughter Kathy. On day of discharge, patient noted to be hypoxic with activity. She notably had signs of pulmonary artery hypertension on admission imaging, home oxygen evaluation performed by RT on discharge. Consider follow-up TTE as an outpatient if within goals of care. Denita was medically stable for discharge home on 06/07; she will have close f/u with Home Health, Oncology, and PCP. Status at Discharge Functional status at discharge: uses cane/walker Overall status at discharge: patient is progressing back to baseline Time Spent with Patient Time attestation: Total time spent providing and/or coordinating discharge services: Time spent: Greater than 30 minutes Specific discharge activities: Care coordination with multidisciplinary team regarding discharge planning, medication reconciliation Exam Narrative: Exam Narrative: GEN: Alert and sitting comfortably in bedside chair, chronically ill HEENT: + alopecia, EOMIs bilaterally CV: S1 S2, no concerning murmurs R: LCTA bilaterally without concerning wheezing, air movement adequate Back: no concerning skin findings Ext: 2+ edema Skin: Erythematous skin lesion R hand, present prior to admission, stable Neuro: Tremors of bilateral upper extremities, stable Psych: Appropriate Const: Vital Signs, click to edit/add: Vital Signs - 24 hr 06/06/22 15:00 06/06/22 15:00 06/06/22 15:00 Temperature 98 F Pulse Rate 73 Pulse Rate [Left B rachial] Pulse Rate [Pulse Oximeter] 136 H 136 H Respiratory Rate 24 24 Blood Pressure Blood Pressure [Le ft Arm] 136/100 H Pulse Oximetry 91 Oxygen Delivery Me thod Room Air 06/06/22 19:00 06/06/22 23:00 06/06/22 23:00 Temperature 97.9 F 97.9 F Pulse Rate Pulse Rate [Left B rachial] 70 Pulse Rate [Pulse Oximeter] 69 69 60 Respiratory Rate 16 16 18 Blood Pressure Blood Pressure [Le ft Arm] 134/95 H 101/54 L Pulse Oximetry 91 90 Oxygen Delivery Me thod Room Air 06/06/22 23:00 06/07/22 03:00 06/07/22 07:00 Temperature 97.9 F Pulse Rate 78 84 Pulse Rate [Left B rachial] Pulse Rate [Pulse Oximeter] 75 Respiratory Rate 16 Blood Pressure Blood Pressure [Le ft Arm] 141/84 H Pulse Oximetry 92 Oxygen Delivery Vt thod Room Air 06/07/22 07:00 06/07/22 07:00 06/07/22 10:10 Temperature 99.2 F Pulse Rate Pulse Rate [Left B rachial] 70 Pulse Rate [Pulse Oximeter] 86 86 Respiratory Rate 20 20 Blood Pressure Blood Pressure [Le ft Arm] 114/76 Pulse Oximetry 96 84 L Oxygen Delivery Vt thod Room Air Room Air 06/07/22 11:00 06/07/22 13:24 Temperature 99.2 F Pulse Rate 84 Pulse Rate [Left B rachial] Pulse Rate [Pulse Oximeter] 79 Respiratory Rate 18 18 Blood Pressure 129/72 Blood Pressure [Le ft Arm] 131/50 L Pulse Oximetry 88 [facility] DS: Data Data Completed and Pending Labs on day of discharge: Preliminary micro results at discharge 06/03/22 07:45 Blood Culture - Preliminary Blood NO GROWTH AFTER 96 HOURS 06/03/22 07:45 Blood Culture - Preliminary Blood NO GROWTH AFTER 96 HOURS 06/05/22 06:55 Blood Culture - Preliminary Blood NO GROWTH AFTER 48 HOURS Discharge Plan Discharge Disposition: Home, Self-Care Date of Admission: 06/02/22 13:35 Attending Provider on Discharge: Karen Ramos Primary Care Provider: Jeet Kumar Condition: Unchanged Anticipated Discharge Date/Time: 06/07/22 15:30 Discharge Medications: New calcium carbonate 200 mg calcium (500 mg) Tablet,Chewable 400 mg PO TID Qty: 60 0RF (DME) Home Oxygen Misc See Rx Instructions .Route Qty: 1 0RF Rx Instructions: As directed (DME) Home Oxygen Misc See Rx Instructions .Route Qty: 1 0RF Rx Instructions: for PAH. LOS: 99 mos. Patient's oxygen saturation is 86% on RA, requires 1L of O2 per NC at rest and 3L of O2 per NC with activity to keep Satrurations >90%. Continued acetaminophen 500 mg capsule 500 mg PO Q6H PRN carvedilol [Coreg] 3.125 mg tablet 3.125 mg PO BID Rx Instructions: must administer with a meal/food ondansetron 4 mg tablet,disintegrating 4 mg PO Q6H PRN (Reason: nausea) Qty: 30 2RF Rx Instructions: Take 1 tablet every 6 hours as needed for nausea related to chemotherapy. Okay to start 24 hours after chemotherapy. famotidine 20 mg tablet 20 mg PO HS PRN Hold Instructions: not currently taking buspirone 7.5 mg tablet 7.5 mg PO BID Hold Instructions: Not currently taking quetiapine 200 mg tablet 200 mg PO HS quetiapine 50 mg tablet 50 mg PO DAILY ascorbic acid (vitamin C) 500 mg tablet,chewable 500 mg PO DAILY loperamide [Imodium A-D] 2 mg capsule 2 mg PO Q2-4H PRN Rx Instructions: administer after each loose stool until symptoms controlled; do not exceed 8 mg per 24 hrs cholecalciferol (vitamin D3) 25 mcg (1,000 unit) capsule 25 mcg PO DAILY atorvastatin 20 mg tablet 20 mg PO HS Label Comments: Take 1 Tablet by mouth at bedtime. potassium chloride 10 mEq tablet extended release 10 meq PO DAILY Rx Instructions: Take one tablet daily. hydroxyzine HCl 25 mg tablet 25 - 50 mg PO DAILY PRN (Reason: anxiety) Rx Instructions: 1 to 2 tablets daily as needed for anxiety lamotrigine 100 mg tablet 100 mg PO BID pantoprazole 40 mg tablet,delayed release (DR/EC) 40 mg PO DAILY PRN Hold Instructions: not currently taking Discontinued lisinopril 10 mg tablet 10 mg PO DAILY Discharge Orders: Discharge Order (Routine); Ordered 06/07/22 Ordered By: Karen Ramos Patient Education: Calcium Supplement (By mouth) (Antacid, Charanjit-Citrate, Calcarb 600,..., Using Oxygen at Home (DC), Bacterial Pneumonia (DC) Additional Instructions: Your pneumonia was treated with antibiotics and has resolved. We will resume Home Health (PT and OT) for your weakness. The Oncology team will be in contact with you about followup. Medication changes: 1. We are STOPPING your Lisinopril because you had low blood pressure here. This can be restarted when you see Mukti (or Oncology) in followup if your blood pressure becomes high again. 2. We are STARTING calcium since your calcium was low here. Easiest to just buy some TUMS and take 1-2 of these with your meals. 3. No changes to psych medications: Make sure you follow up with your Psychiatry team for your medication management and mood. Activity Level: No strenuous activity Activity Detail: Resume previous Home Care orders upon discharge. Discharge Diet: High Protein/High Calorie Follow Up Appointments: Matilda Alba MD [Staff Physician] - (See Dr. Alba or garment steamer at [facility] as scheduled) Jeet Kumar PA-C [Primary Care Provider] - 06/14/22 9:30 am Forms: [employer] Info Instructions
--- NOTE | 2022-06-07 17:09 | PC.NURSE ---
Nursing Care Hours: 8619-6600 Pt this calm and cooperative. Up in chair for meals. NC 1L keeping sats above 93%. Oxycodone and Tylenol given PRN for pain in bilat knees 12/06. IV in R foot removed, TEDs applied. Discharge instructions provided to pt and adult daughter. All questions and concerns answered. Wheeled out to vehicle in stable condition.
== END 2022-06-07 16:05 | disposition home or self-care (01) | DRG 193 ==
LOC: ED 12:42 → MEDSURG 14:33
PROVIDERS: Family Medicine; Admitting Provider Family Medicine; Emergency Provider Family Medicine; PCP Physician Assistant Medical; Visit Provider Family Medicine
DX: J18.9 Pneumonia, unspecified organism (principal); D61.810 Antineoplastic chemotherapy induced pancytopenia; C77.3 Secondary and unspecified malignant neoplasm of axilla and upper limb lymph nodes; E46 Unspecified protein-calorie malnutrition; N17.9 Acute kidney failure, unspecified; I42.2 Other hypertrophic cardiomyopathy; K52.1 Toxic gastroenteritis and colitis; F31.10 Bipolar disorder, current episode manic without psychotic features, unspecified; C50.919 Malignant neoplasm of unspecified site of unspecified female breast; E86.0 Dehydration; D64.81 Anemia due to antineoplastic chemotherapy; E83.42 Hypomagnesemia; E83.51 Hypocalcemia; I95.9 Hypotension, unspecified; E87.6 Hypokalemia; T45.1X5A Adverse effect of antineoplastic and immunosuppressive drugs, initial encounter; R53.1 Weakness; E88.09 Other disorders of plasma-protein metabolism, not elsewhere classified; E11.9 Type 2 diabetes mellitus without complications; I10 Essential (primary) hypertension; I27.21 Secondary pulmonary arterial hypertension; G25.1 Drug-induced tremor; T43.595A Adverse effect of other antipsychotics and neuroleptics, initial encounter; R10.2 Pelvic and perineal pain; C50.911 Malignant neoplasm of unspecified site of right female breast; Z17.0 Estrogen receptor positive status [ER+]
CPT/HCPCS: 36415; 36430; 71045; 71260; 72131; 74177; 80048; 80053; 80076; 81001; 82330; 82803; 82962; 83605; 83735; 84132; 84145; 84484; 85025; 85610; 86140; 86850; 86900; 86901; 86922; 87040; 87086; 87186; 87502; 87634; 87635; 93005; 94664; 94761; 97110; 97116; 97161; 97165; 97535; 99285; G0378; A9270; J0610; J2060; J2543; J3370; J3475; J3480; J7030; J7042; J7120; P9016; Q9967

== ENCOUNTER 2022-06-29 14:40 | Emergency (ER) | payer MEDICARE, SELFPAY ==
[2022-06-29 15:13] VITALS: BP 110/76; PULSE 124; RESP 16; TEMP 36.4; O2SAT 95; BMI 27.4
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
[2022-06-29] MEDS: LORazepam 2 MG/ML inj 1 MG IM (17:29)
--- NOTE | 2022-06-29 17:51 | CRLHL7_ITS ---
For Patients: As a result of the Century Cures Act, medical imaging exams and procedure reports are released immediately into your electronic medical record. You may view this report before your referring provider. If you have questions, please contact your health care provider. INDICATION: Dysphagia, evaluation for pneumothorax. TECHNIQUE: Chest 1 views. COMPARISON: May 2022. FINDINGS: Lungs: Normal lung volume. No consolidation. The tracheobronchial tree and hilar structures are unremarkable. Pleura: No pleural effusion or pneumothorax. Heart and Mediastinum: Normal heart size. Atherosclerotic. Bones: No acute displaced osseous process. Sternotomy wires IMPRESSION: No consolidation. No radiographically apparent pneumothorax. Dictated by Rick Colorado MD @ 06/29/2022 6:34:40 PM (Electronically Signed)
[2022-06-29] MEDS: 0.9 % SODIUM CHLORIDE 1000 ml 1,000 ML IV (18:16)
[2022-06-29 18:29] LABS: Basophils Absolute Auto 0.01 K/uL (0.00-0.30); Basophils Percent Auto 0.2 % (0.0-3.0); Eosinophils Absolute Auto 0.07 K/uL (0.00-0.50); Eosinophils Percent Auto 1.2 % (0.0-7.0); Hematocrit 41.8 % (33.0-51.0); Hemoglobin* 14.1 gm/dL (12.0-16.0); Immature Granulocytes Abs Auto 0.01 K/uL (0.00-0.30); Immature Granulocytes Pct Auto 0.2 %; Lymphocytes Absolute Auto 1.22 K/uL (0.90-2.90); Lymphocytes Percent Auto 21.4 % (20-44); Mean Corpuscular HGB Conc 34 gm/dL (32-36); Mean Corpuscular Hemoglobin 30 pg (26-34); Mean Corpuscular Volume 87 fL (80-100); Neutrophils Absolute Auto 3.87 K/uL (1.7-7.0); Platelet Count* 122 K/uL (140-440); RDW Coefficient of Variation % 14.9 % (11.5-15.5); Red Blood Count 4.78 m/uL (4.00-5.20); White Blood Count* 5.69 K/uL (4.50-11.00)
[2022-06-29 18:30] LABS: Albumin* 4.5 g/dL (3.3-5.0); Chloride* 101 mmol/L (96-114); Sodium* 134 mmol/L (135-149)
[2022-06-29 18:32] LABS: Creatinine* 0.7 mg/dL (0.5-1.5); Estimated Glomerular Filt Rate 93 ml/min
[2022-06-29 18:33] LABS: Alanine Aminotransferase* 27 U/L (4-35); Alkaline Phosphatase* 83 U/L (40-150); Aspartate Amino Transferase* 51 U/L (12-35); Bilirubin Direct* 0.3 mg/dL (0.0-0.5); Bilirubin Total* 2.1 mg/dL (0.1-1.5); Blood Urea Nitrogen* 10 mg/dL (7-30); Calcium* 9.7 mg/dL (8.4-10.6); Carbon Dioxide* 24 mmol/L (20-32); Glucose* 99 mg/dL (60-115); Magnesium* 1.5 mg/dL (1.5-2.6); Slide Review Reflex No; Total Protein* 7.9 g/dL (6.0-8.3)
[2022-06-29 18:57] LABS: Appearance Urine Clear (Clear); Bilirubin Urine 1+ (Negative); Blood Urine Trace-lysed (Negative); Color Urine Yellow (Yellow); Glucose Urine Negative (Negative); Ketones Urine 2+ (Negative); Leukocyte Esterase Urine Trace (Negative); Nitrite Urine Negative (Negative); Protein Urine Negative (Negative); Urobilinogen Urine 0.2 (0.2-1.0); pH Urine 6.5 (5.0-8.5)
[2022-06-29 19:06] LABS: RBC Urine 0-2 (0-2); Squamous Epithelial Cell Urine Few (None-Few)
[2022-06-29] MEDS: LORazepam 2 MG/ML inj 0.5 MG IVP (19:15)
[2022-06-29 19:18] VITALS: BP 130/85; PULSE 94; RESP 16; TEMP 36.4; O2SAT 98
--- NOTE | 2022-07-02 15:11 | ONC.NURNOTE ---
Echo appt for 06/28 cancelled; policy writer sales called daughterVeronica to check in. She relays that their ride fell through last minute and they were not able to find another ride to that appt. She has called twice to reschedule but has had long hold times; she will continue to try to reschedule. She reviews that patient is getting stronger with home PT; she is now walking around the house unassisted, with Veronica nearby in case of need. Pt was in ED 06/29/22 with trouble swallowing; see ED notes. Veronica notes that patient mental health is the main struggle they are navigating right now. Patient's Rooming House Operator is switching to a Pharm D to in hopes of improving her medication effectiveness. Pt f/u with Jeet Kumar Wed 07/04 for continuing management of mental health and f/u ED visit. Pt recently saw Radiation Oncology. She is still deciding on whether or not to pursue radiation therapy. Veronica notes that she and the pt are focusing primarily on her mental health; reinforced pt's autonomy and importance of mental health management. She will contact Radiation Oncology if she chooses to pursue treatment. Recent consult note scanned into EMR.
== END 2022-06-29 20:21 | disposition home or self-care (01) ==
PROVIDERS: Emergency Provider Family Medicine; PCP Physician Assistant Medical
DX: F41.9 Anxiety disorder, unspecified (principal); F45.8 Other somatoform disorders
CPT/HCPCS: 36415; 71045; 80048; 80076; 81001; 83735; 84443; 85025; 96372; 96374; 99283; 99284; J2060; J7030

== ENCOUNTER 2022-07-20 11:30 | Outpatient (RCR) | payer MEDICARE, SELFPAY ==
--- NOTE | 2022-03-16 09:49 | PC.NURSE ---
Reviewed pathology report with Kesha Velázquez. Decision was made to proceed with Oncotype testing. Request for testing submitted. Patient will see [facility] 03/29 and Kesha Velázquez 04/02. Patient and daughter updated on plan of care.
--- NOTE | 2022-03-27 14:35 | PC.NURSE ---
Message from [facility] that they were unable to perform Oncotype testing as the sample was insufficient for carcinoma cells. I spoke with [facility] and they will discuss with the pathologist and send additional tissue for testing, potentially from the biopsy on 01/05.
--- NOTE | 2022-03-30 17:32 | ONC.NURNOTE ---
Addendum entered and electronically signed by Elizabeth Thornton APRN 04/02/22 09:12: Received call back that provider from [facility] is Dr. Falcon. They will fax his office note when complete. Original Note: [facility] I received call late on Saturday from Isabelle MENDIOLA from [facility] who shares with me the ok for Ms. Espinoza to receive chemotherapy on 04/02/22. She also requested that oncology records are sent to their clinic at fax [phone]. Isabelle's direct phone # is [phone]. I left return message for Isabelle for supporting documentation from her provider regarding cardiac assessment and ok to proceed with treatment to be faxed to our clinic. I will update local [place] [facility] and our team.
--- NOTE | 2022-04-06 14:28 | ONC.NURNOTE ---
Oncotype score reviewed with Kesha Velázquez. Spoke with patients daughter Veronica about Oncotype score of 30. Informed her that with this score, we would recommend chemotherapy. At this time, we are still awaiting on a final treatment recommendation but that we would call them Saturday to discuss further. Veronica verbalizes understanding and will discuss this with her mom. Veronica shares that she is unclear if her mom wants chemotherapy.
--- NOTE | 2022-04-17 13:57 | URNOTE ---
Request received for authorization for Palonosetron ([id number]), Cyclophosphamide (J9070), Pegfilgrastim ([id number]). Prior Authorization is not required as services are based on medical necessity and follow Medicare guidelines.
[2022-04-25 21:23] LABS: Basophils Absolute Auto 0.02 K/uL (0.00-0.30); Basophils Percent Auto 0.4 % (0.0-3.0); Eosinophils Absolute Auto 0.12 K/uL (0.00-0.50); Eosinophils Percent Auto 2.6 % (0.0-7.0); Hematocrit 37.2 % (33.0-51.0); Hemoglobin* 12.4 gm/dL (12.0-16.0); Lymphocytes Percent Auto 44.2 % (20-44); Mean Corpuscular HGB Conc 33 gm/dL (32-36); Mean Corpuscular Hemoglobin 30 pg (26-34); Mean Corpuscular Volume 89 fL (80-100); Monocytes Percent Auto 7.1 % (0.0-11.0); Neutrophils Absolute Auto 2.11 K/uL (1.7-7.0); Neutrophils Percent Auto 45.7 % (42.0-72.0); Platelet Count* 145 K/uL (140-440); RDW Coefficient of Variation % 11.5 % (11.5-15.5); Red Blood Count 4.16 m/uL (4.00-5.20); White Blood Count* 4.62 K/uL (4.50-11.00)
[2022-04-25 21:28] LABS: Slide Review Reflex No
[2022-04-25 21:43] LABS: Chloride* 107 mmol/L (96-114); Sodium* 140 mmol/L (135-149)
[2022-04-25 21:44] LABS: Potassium* 3.7 mmol/L (3.6-5.1)
[2022-04-25 21:46] LABS: Alanine Aminotransferase* 15 U/L (4-35); Alkaline Phosphatase* 103 U/L (40-150); Aspartate Amino Transferase* 28 U/L (12-35); Bilirubin Total* 0.9 mg/dL (0.1-1.5); Blood Urea Nitrogen* 12 mg/dL (7-30); Carbon Dioxide* 28 mmol/L (20-32); Creatinine* 0.7 mg/dL (0.5-1.5); Estimated Glomerular Filt Rate 93 ml/min; Total Protein* 6.8 g/dL (6.0-8.3)
[2022-04-25 21:47] LABS: Calcium* 8.9 mg/dL (8.4-10.6); Glucose* 90 mg/dL (60-115)
--- NOTE | 2022-04-26 14:48 | URNOTE ---
Request received for authorization for Docetaxel (Taxotere) ([id number]). Prior Authorization is not required as services are based on medical necessity and follow Medicare guidelines.
--- NOTE | 2022-04-26 14:56 | ONC.NURNOTE ---
Met with patient, daughter Veronica and friend for a chemotherapy teaching session. Content of the chemotherapy binder reviewed. Side effects of treatment reviewed and patient instructed on what to report to provider and how to contact provider with concerns. Reviewed instructions to start Dexamethasone the day prior to chemotherapy, 8 mg BID. Will contact social work faculty member to assist patient with concerns regarding insurance. Patient encouraged to call with questions or concerns.
--- NOTE | 2022-04-27 14:23 | ONC.NURNOTE ---
Received call from pt's daughter Veronica reviewing that pt's dentist recommends taking Ca with Vit D3 and Vit C at OTC strengths. Confirmed that would be ok; requested pt bring the bottles in Tu05/01 when here for 1st chemo so doses can be added to med list. Veronica agreeable to this plan.
[2022-05-03 10:21] VITALS: BP 109/75; PULSE 81; RESP 16; TEMP 35.9; O2SAT 95
[2022-05-03] MEDS: PALONOSETRON 0.25 MG/5 ML inj IV (11:54)
--- NOTE | 2022-05-03 20:04 | PC.SOCIAL ---
Phone call to Ramila Gabriel in Patient Financial Services at [facility]. Ramila verified that pt does have medical assistance, however, pt is on the Alternative Care Program, so some medical needs are not covered. Consulted with co-worker on next steps. Next steps would be for pt to reach out to [facility] caser up for medical assistance to determine if pt qualifies for straight medical assistance. Met with pt and pt's daughter in pt's room. Discussed pt's status with medical assistance. Informed that this worker checked with pt financial services and pt does have medical assistance through [facility], however, pt is on the Alternative Care Program, which does not cover all medical needs. Informed pt that pt will have to reach out to her [facility] caser up for medical assistance if she believes she would qualify for straight medical assistance and the caser up can assist with getting the proper verifications and paperwork completed. Pt's daughter stated that pt does have a caser up and she will reach out to that individual. Informed pt and pt's daughter that social work is available to them if they have any further questions. Pt's daughter asked if it was possible to get home health care for nursing. Informed pt and pt's daughter that they would have to speak with the MD either in Oncology or pt's primary care provider to get a MD order for home health care - Nursing, then this can be established if they deem there is a medical need. Pt will discuss with MD. Reiterated that social work is available at any time if there are any further questions. Social Work will follow up as necessary.
--- NOTE | 2022-05-04 15:31 | ONC.NURNOTE ---
Called pt and daughter, Veronica, to f/u 1st chemo T/C yesterday. Pt denies n/v; she has not taken Ondansetron or any antiemetics since chemo yesterday and is feeling well. She is eating and drinking well, and has her Ondansetron readily available. She reports she slept 3-4 hours last night, an improvement on 0 hrs the prior night d/t Dex PO BID -1, 0, +1 with chemo. She denies heartburn. Her On-pro is functioning well and will complete this evening; she has the booklet available. Pt verbalizes she would like to pursue port placement. BNN to f/u with providers to set up prior to next chemo if advised. Pt and daughter do not have any questions/concerns, will call if any arise. BNN to check in Mon 05/07 to f/u how the weekend went.
--- NOTE | 2022-05-08 11:16 | ONC.NURNOTE ---
Call to patient today for an update on her condition. Denita feels that today is a little better then yesterday. She is trying to increase her fluid intake and thinks she got close to 60 oz yesterday. Her appetite is still not great but she is eating. Denies nausea, diarrhea or constipation. Discussed trying to supplement with Boost/Ensure as well as small frequent meals. In regards to the rash, the patient states it doesn't bother me at all and she reports it is resolving. She slept a little better last night, getting about a 3 hour stretch. Their biggest concern is her anxiety and quality of life. They shared that this diagnosis and treatment has been very difficult. Daughter Veronica is concerned that Denita spends most of her time laying around and has very little quality of life. Denita shares that the tremors in her hand are very concerning to her and she feels this is a result of her increased anxiety. Jeet Lassiterel manages her anxiety medications so I encouraged them to reach out to her to request a follow up. I will also send her a message. I asked Denita if she felt it would be beneficial to bring her into the clinic for assessment and possible IV fluids but she declined. I also spoke to her about getting a port placed prior to the second cycle and she also declined this. I told Denita and Veronica that I would reach out again tomorrow for an update.
--- NOTE | 2022-05-09 14:53 | ONC.NURNOTE ---
Call to patient for an update on her condition. Her biggest concern right now is the tremors in her arms and hands and her lack of sleep. Patient feels the tremors are getting worse. Patient reports only sleeping about 2 hours per night and no naps during the day, although she states this is not a new problem. Patient is eating, although her daughter Veronica feels that she wouldn't be if Veronica wasn't putting the food in front of her. 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 Veronica did mention that they did not start the Buspirone when prescribed in March as they felt like there was too many new things going on. I encouraged her to do this as this may help with some of her anxiety. I also placed a call to Sharon Bhatia CNP at [facility] ([phone]) who manages [facility] mental health to discuss her case. I left her a message requesting a return call.
--- NOTE | 2022-05-10 11:00 | ONC.NURNOTE ---
Call from Denita's daughter Veronica today. She wonders if Denita needs to be evaluated. Denita continues to have poor PO intake, minimal food and around 50 oz of fluid daily. She is producing urine but it is darker in color. She has had a few looser then normal stools. She feels very fatigued. Patient denies nausea, dizziness or confusion. Patient continues to deal with her mental health concerns: poor sleep, tremors, anxiety, etc. I requested they take her blood pressure but their machine is not working. Reviewed her concerns with Elizabeth Thornton, COL[facility]. We offered to see Denita to evaluate her vitals, weight and labs with the possibility of giving her IV fluids. Veronica shared that transportation is a barrier and they wondered if they could see their PCP in [place]. I sent a chart note to Jeet Kumar team requesting their assistance in the care of Denita and that Elizabeth is available for questions. Veronica to call me back if they are not able to see them in [place]. Also, still awaiting a return call from mental health provider, Sharon Bhatia [phone].
--- NOTE | 2022-05-11 16:23 | ONC.NURNOTE ---
Check in call to patient. Patient sounds stronger today. She is pushing fluids, eating a bit better and feels her anxiety and sleep are improved since starting the Buspirone. She has had two soft/loose stools today and has taken Imodium. I reviewed the instructions for how to take Imodium at home and to seek care in the ER if she has 3-4 watery stools despite taking Imodium. Patient is drinking Gatorade. Patient saw a nurse in [place] yesterday and her vital signs were stable. Patient did not have labs drawn. Patient has follow up scheduled 05/18 with her mental health provider, . I left her a message to update her on Denita's condition. Otherwise, we will see patient on 05/24 for consideration of her next cycle of chemotherapy. Hetal encouraged to call with questions or concerns.
--- NOTE | 2022-05-14 17:08 | ONC.NURNOTE ---
Received call from pt's daughter, Kathy, reporting pt fell at home Saturday evening. Kathy called 911 d/t extensive nosebleed which resolved itself prior to EMS arrival. She was assessed by EMS and did not need to go to ED. Upon further discussion, pt notes her legs felt very weak and continue to currently; denies dizziness. She fell when she was up and walking; Kathy believes she tripped on a blanket on the floor. Kathy notes pt has been in contact with Sharon, her medical administrative technician who restarted/prescribed Buspar 7.5mg BID and increased Olanzapine to 15mg QHS. Pt began increased dose of Olanzapine Sat a few hours prior to fall and continues to have leg weakness. She also notes struggling with oral hydration. She also reports diarrhea of 4 soft-watery stools on Saturday that resolved after taking 3 immodium (2 initially and 1 after next loose stool). Recommended pt come in for IVF, possible labs and possibly to see Elizabeth Stephen APRN as hydration/nutrition has been a struggle since C1 chemo. Pt reluctant to come in but daughter Kathy encouraged her to; sched for 05/16 @ 11am as that is soonest pt is available. BNN to review with Elizabeth Stephen APRN prior to appt.
[2022-05-15 13:56] LABS: Basophils Absolute Auto 0.05 K/uL (0.00-0.30); Eosinophils Absolute Auto 0.02 K/uL (0.00-0.50); Eosinophils Percent Auto 0.4 % (0.0-7.0); Hematocrit 35.2 % (33.0-51.0); Hemoglobin* 11.7 gm/dL (12.0-16.0); Immature Granulocytes Abs Auto 0.28 K/uL (0.00-0.30); Immature Granulocytes Pct Auto 5.5 %; Lymphocytes Absolute Auto 1.12 K/uL (0.90-2.90); Mean Corpuscular HGB Conc 33 gm/dL (32-36); Mean Corpuscular Hemoglobin 29 pg (26-34); Mean Corpuscular Volume 87 fL (80-100); Monocytes Percent Auto 8.7 % (0.0-11.0); Neutrophils Absolute Auto 3.17 K/uL (1.7-7.0); Neutrophils Percent Auto 62.4 % (42.0-72.0); Platelet Count* 100 K/uL (140-440); RDW Coefficient of Variation % 11.7 % (11.5-15.5); Red Blood Count 4.03 m/uL (4.00-5.20); White Blood Count* 5.08 K/uL (4.50-11.00)
[2022-05-15 14:16] LABS: Albumin* 3.4 g/dL (3.3-5.0); Chloride* 106 mmol/L (96-114)
[2022-05-15 14:17] LABS: Potassium* 3.2 mmol/L (3.6-5.1); Sodium* 139 mmol/L (135-149)
[2022-05-15 14:19] LABS: Alanine Aminotransferase* 15 U/L (4-35); Alkaline Phosphatase* 95 U/L (40-150); Aspartate Amino Transferase* 27 U/L (12-35); Bilirubin Total* 0.7 mg/dL (0.1-1.5); Blood Urea Nitrogen* 3 mg/dL (7-30); Carbon Dioxide* 30 mmol/L (20-32); Creatinine* 0.6 mg/dL (0.5-1.5); Estimated Glomerular Filt Rate 97 ml/min; Glucose* 130 mg/dL (60-115); Total Protein* 6.3 g/dL (6.0-8.3)
[2022-05-15 14:20] LABS: Calcium* 8.1 mg/dL (8.4-10.6)
[2022-05-15] MEDS: 0.9 % SODIUM CHLORIDE 500 ML 500 ML IV (14:45)
[2022-05-15 14:50] LABS: Vitamin D 25 Hydroxy* 42 ng/mL (30-80)
[2022-05-15 14:52] LABS: Slide Review Reflex Yes
[2022-05-15 14:53] LABS: Slide Review Acceptable Review (Acceptable)
[2022-05-15] MEDS: POTASSIUM BICARB 25 MEQ EFFERVESCENT TAB PO (15:12)
[2022-05-15 15:39] LABS: Vitamin B12* > 1000 pg/mL (243-894)
[2022-05-15 16:25] LABS: Magnesium* 1.9 mg/dL (1.5-2.6)
[2022-05-24 09:06] LABS: Hematocrit 38.2 % (33.0-51.0); Hemoglobin* 12.8 gm/dL (12.0-16.0); Lymphocytes Percent Auto 10.6 % (20-44); Mean Corpuscular HGB Conc 34 gm/dL (32-36); Mean Corpuscular Hemoglobin 29 pg (26-34); Mean Corpuscular Volume 86 fL (80-100); Monocytes Percent Auto 5.8 % (0.0-11.0); Neutrophils Percent Auto 83.6 % (42.0-72.0); Platelet Count* 235 K/uL (140-440); RDW Coefficient of Variation % 12.4 % (11.5-15.5); Red Blood Count 4.42 m/uL (4.00-5.20); White Blood Count* 4.98 K/uL (4.50-11.00)
[2022-05-24 09:22] LABS: Slide Review Reflex No
[2022-05-24 09:31] LABS: Albumin* 4.1 g/dL (3.3-5.0); Chloride* 107 mmol/L (96-114); Potassium* 4.2 mmol/L (3.6-5.1); Sodium* 137 mmol/L (135-149)
[2022-05-24 09:33] LABS: Creatinine* 0.6 mg/dL (0.5-1.5); Estimated Glomerular Filt Rate 97 ml/min
[2022-05-24 09:34] LABS: Alanine Aminotransferase* 20 U/L (4-35); Alkaline Phosphatase* 93 U/L (40-150); Aspartate Amino Transferase* 25 U/L (12-35); Blood Urea Nitrogen* 9 mg/dL (7-30); Calcium* 9.2 mg/dL (8.4-10.6); Carbon Dioxide* 22 mmol/L (20-32); Glucose* 196 mg/dL (60-115); Total Protein* 7.2 g/dL (6.0-8.3)
[2022-05-24] MEDS: PALONOSETRON 0.25 MG/5 ML inj IV (11:00)
--- NOTE | 2022-05-24 13:47 | ONC.NURNOTE ---
Accompanied patient to her oncology visit. Updated medication list printed for patient with emphasis placed on discontinuation of dexamethasone and the possible need for ondansetron (in light of discontinued olanzapine). Patient encouraged to increase her PO intake with small frequent meals and supplements. Patient to call with questions or concerns.
--- NOTE | 2022-05-29 11:05 | ONC.NURNOTE ---
Call to patient to see how she is doing post Cycle #2 of her chemotherapy. Patient states she is not feeling well today. She reports intermittent stomach cramps for the past 24 hours (rate 8 out of 10 on pain scale). She had a soft stool yesterday but prior to that had not had a bowel movement since before chemotherapy. She did take a few doses of laxative over the weekend. Patient reports some nausea but has not had to use her antiemetics as she states the feeling passes quickly. Her appetite is poor and she is eating very minimally. She states she is drinking close to 60 oz of fluid daily and urinating normally. Denita reports her sleep is better but her tremors are about the same or worse. Only other concern is bilateral knee pain that started after chemotherapy. No swelling noted. In regards to the stomach cramps, I told her that this could be some residual cramping from the laxatives or could be a side effect of the chemotherapy. If the pain was to worsen or not get better, I encouraged her to be evaluated in the ED. We also reviewed the protocol for how to use Imodium if she develops diarrhea. As for her appetite, I stressed the importance of pushing fluids and small/frequent meals. We may need to consider a dietary consult in the near future. Lastly, we discussed her knee pain and that it could be a side effect of the treatment (arthralgia/myalgia). I encouraged her to try Tylenol and we will monitor this concern. I encouraged them to call with questions/concerns. I will plan to follow up with them tomorrow for an update on her condition.
--- NOTE | 2022-06-01 10:21 | ONC.NURNOTE ---
Call from homecare nurse Anna with an update on Denita's condition. Patient had a fall this morning around 4:30AM. The medics were called but did not take her into the hospital as the patient was stable. Denita hit her chin and face on her walker per Anna and the cause of the fall per the patient was weakness. Anna states Denita's vitals are stable but she is so weak that she can hardly stand or sit at the edge of the bed. She continues to have intermittent abdominal pain. Denies nausea or vomiting. She has had a few loose stools (one yesterday and 2 today). When Anna arrived today, the patient was incontinent of stool and needed assist with getting cleaned up. Denita states that she did take Imodium after each loose stool. Denita is eating only bites of food and drinking minimally. I told Anna that we would recommend Denita be evaluated in the ER. Elizabeth Thornton NP updated and agrees with recommendation. Patient will likely go to [facility] in [place]. [facility] will follow up with patient next week for an update.
--- NOTE | 2022-06-08 14:34 | ONC.NURNOTE ---
Addendum entered by Estela Clemens 06/08/22 14:55: Call from Denita and Veronica. They are doing okay but Denita reports ongoing/unchanged complaints of weakness. She states her legs are rubbery. Home care was just there visiting and Denita's VSS. Home care nurse will visit them weekly on Fridays. PT will come Saturday and OT will come Saturday. Denita states she is trying to drink fluids but has only eaten a few bites of cereal today. We discussed the importance of eating and drinking. Reviewed plans for visit with Kesha Velázquez on 06/14. Explained that it is unlikely Denita will get chemotherapy that day but we will discuss this further with Kesha on . Kathy and Denita verbalize understanding of plan. Original Note: Message left for daughter Veronica requesting return call for an update on Denita's condition.
[2022-06-14 10:30] LABS: Basophils Percent Auto 0.3 % (0.0-3.0); Eosinophils Percent Auto 0.3 % (0.0-7.0); Hematocrit 36.4 % (33.0-51.0); Hemoglobin* 11.9 gm/dL (12.0-16.0); Lymphocytes Percent Auto 15.2 % (20-44); Mean Corpuscular HGB Conc 33 gm/dL (32-36); Mean Corpuscular Hemoglobin 29 pg (26-34); Mean Corpuscular Volume 88 fL (80-100); Monocytes Percent Auto 13.6 % (0.0-11.0); Neutrophils Percent Auto 70.6 % (42.0-72.0); Platelet Count* 227 K/uL (140-440); RDW Coefficient of Variation % 14.3 % (11.5-15.5); Red Blood Count 4.13 m/uL (4.00-5.20); White Blood Count* 3.16 K/uL (4.50-11.00)
[2022-06-14 10:32] LABS: Slide Review Reflex No
[2022-06-14 10:46] LABS: Albumin* 3.6 g/dL (3.3-5.0); Chloride* 102 mmol/L (96-114); Potassium* 3.2 mmol/L (3.6-5.1); Sodium* 139 mmol/L (135-149)
[2022-06-14 10:48] LABS: Creatinine* 0.7 mg/dL (0.5-1.5); Estimated Glomerular Filt Rate 93 ml/min
[2022-06-14 10:49] LABS: Alanine Aminotransferase* 16 U/L (4-35); Alkaline Phosphatase* 84 U/L (40-150); Aspartate Amino Transferase* 32 U/L (12-35); Bilirubin Total* 1.1 mg/dL (0.1-1.5); Blood Urea Nitrogen* 3 mg/dL (7-30); Carbon Dioxide* 31 mmol/L (20-32); Glucose* 124 mg/dL (60-115); Total Protein* 6.7 g/dL (6.0-8.3)
--- NOTE | 2022-06-15 10:09 | ONC.NURNOTE ---
Addendum entered by Estela Clemens 06/22/22 13:37: Patient has follow up with Dr. Falcon with [facility] prior on 06/28. Original Note: Copy of hospital discharge summary, CT CAP report and 06/14 oncology note faxed to Dr. Sandy Falcon with ATTN to nurse coordinator Nkechi Pedroza at [facility] ( fax [phone], phone [phone]) with request to call patient for follow up appointment.
--- NOTE | 2022-06-20 12:10 | ONC.NURNOTE ---
Follow up call to patient for an update on her condition. Patient states she is doing okay. She reports her energy is improved but her legs continue to feel like rubber. She continues to work with PT/OT at home. She is only using her oxygen after exertion. Patient states she is eating but knows that she needs to eat more. Denita has follow up with her psychiatry nurse on 06/22 and Radiation Oncology consult 06/25. Patient denies any questions or concerns.
[2022-07-20 10:49] LABS: Basophils Absolute Auto 0.02 K/uL (0.00-0.30); Basophils Percent Auto 0.4 % (0.0-3.0); Eosinophils Absolute Auto 0.05 K/uL (0.00-0.50); Hematocrit 40.5 % (33.0-51.0); Hemoglobin* 14.3 gm/dL (12.0-16.0); Immature Granulocytes Abs Auto 0.04 K/uL (0.00-0.30); Immature Granulocytes Pct Auto 0.8 %; Lymphocytes Absolute Auto 1.43 K/uL (0.90-2.90); Lymphocytes Percent Auto 28.8 % (20-44); Mean Corpuscular HGB Conc 35 gm/dL (32-36); Mean Corpuscular Hemoglobin 30 pg (26-34); Mean Corpuscular Volume 86 fL (80-100); Monocytes Percent Auto 10.3 % (0.0-11.0); Neutrophils Absolute Auto 2.91 K/uL (1.7-7.0); Neutrophils Percent Auto 58.7 % (42.0-72.0); Platelet Count* 187 K/uL (140-440); RDW Coefficient of Variation % 13.5 % (11.5-15.5); Red Blood Count 4.72 m/uL (4.00-5.20); White Blood Count* 4.96 K/uL (4.50-11.00)
[2022-07-20 10:53] LABS: Slide Review Reflex No
[2022-07-20 11:09] LABS: Chloride* 99 mmol/L (96-114)
[2022-07-20 11:10] LABS: Albumin* 4.2 g/dL (3.3-5.0); Potassium* 3.6 mmol/L (3.6-5.1); Sodium* 134 mmol/L (135-149)
[2022-07-20 11:12] LABS: Creatinine* 0.9 mg/dL (0.5-1.5); Estimated Glomerular Filt Rate 69 ml/min
[2022-07-20 11:13] LABS: Alanine Aminotransferase* 23 U/L (4-35); Alkaline Phosphatase* 87 U/L (40-150); Aspartate Amino Transferase* 29 U/L (12-35); Bilirubin Total* 2.4 mg/dL (0.1-1.5); Blood Urea Nitrogen* 12 mg/dL (7-30); Carbon Dioxide* 25 mmol/L (20-32); Glucose* 137 mg/dL (60-115); Total Protein* 7.4 g/dL (6.0-8.3)
[2022-07-20 11:14] LABS: Calcium* 9.4 mg/dL (8.4-10.6)
[2022-07-20 12:40] LABS: Bilirubin Direct* 0.4 mg/dL (0.0-0.5)
== END 2022-07-24 23:59 | disposition home or self-care (01) ==
LOC: CCIC 11:30
PROVIDERS: Internal Medicine Medical Oncology; Physician Assistant; PCP Physician Assistant Medical; Referring Provider Physician Assistant Medical; Visit Provider Nurse Practitioner Family
DX: C50.911 Malignant neoplasm of unspecified site of right female breast (principal); Z17.0 Estrogen receptor positive status [ER+]; Z90.13 Acquired absence of bilateral breasts and nipples; R53.1 Weakness; F31.10 Bipolar disorder, current episode manic without psychotic features, unspecified; R25.1 Tremor, unspecified
CPT/HCPCS: 36415; 36592; 80053; 82248; 82306; 82607; 82728; 83735; 84443; 85025; 96376; 96377; 96413; 96417; 99202; 99205; 99212; 99214; 99215; J2506; J9070; A9270; J2469; J7050; J7120; J9171

== ENCOUNTER 2022-07-25 07:53 | Outpatient (CLI) | payer MEDICARE, SELFPAY ==
--- NOTE | 2022-07-25 08:15 | CRLHL7_ITS ---
For Patients: As a result of the Century Cures Act, medical imaging exams and procedure reports are released immediately into your electronic medical record. You may view this report before your referring provider. If you have questions, please contact your health care provider. CLINICAL HISTORY: Elevated bilirubin FINDINGS: The patient`s liver is of normal size and has uniform echogenicity. There is no evidence of ascites. Cholelithiasis. The gallbladder wall measures 2 mm in thickness. The common bile duct is of normal size and measures mm in diameter at the level of the jihan hepatis. The pancreas appears normal. There is no evidence of a stone or hydronephrosis within the right kidney. The right kidney measures 11.1 cm in length. IMPRESSION: Cholelithiasis. Dictated by Alaina Carrillo MD @ 07/25/2022 2:34:10 PM (Electronically Signed)
--- NOTE | 2022-07-25 11:15 | CRLHL7_ITS ---
For Patients: As a result of the Century Cures Act, medical imaging exams and procedure reports are released immediately into your electronic medical record. You may view this report before your referring provider. If you have questions, please contact your health care provider. Indication: Dysphagia Technique: Modified barium swallow with speech Comparison: No comparison Findings: The patient was given barium, juice,, muffin, oreo cookie. No aspiration or penetration seen. Impression: No aspiration or penetration. Please refer to the speech pathologist for full details. 33 seconds of fluoro time Dictated by Alaina Carrillo MD @ 07/25/2022 11:27:21 AM (Electronically Signed)
--- NOTE | 2022-07-25 14:25 | SLP.EVAL ---
Dr. Kumar Please review, sign and return. Thank you Betzy Cortes, CHILD SUPPORT INVESTIGATOR CHILD SUPPORT INVESTIGATOR Reginaal CHILD SUPPORT INVESTIGATOR Len Start: 07/25/22 12:38 Freq: Status: Active Protocol: Document 07/25/22 12:55 HJS (Rec: 07/25/22 13:18 HJS [id number]) E-signed By Betzy Cortes, [facility], CHILD SUPPORT INVESTIGATOR CHILD SUPPORT INVESTIGATOR System Review History & Reason For Referral Type of Speech Evaluation Modified Barium Swallow Evaluation Rehabilitation Order Evaluation Date of Order 07/11/22 Reason for Referral Difficulty getting a swallow started when she doesn't have food in her mouth. Medical Diagnosis Breast cancer Treatment Diagnosis Dysphagia Vision Information Vision Status Patient is wearing glasses. Patient Orientation Orientation & Mental Status Able to answer questions and follow simple questions. CHILD SUPPORT INVESTIGATOR Initial Assessment/POC Subjective Information Subjective/Pain Comment Patient ambulated to the xray suite with the assist of a walker. Her daughter is with her. Caregiver's Name Kathy - Daughter Assessment & Impression Assessment/Impression Patient is a 72 year old female referred for a modified barium swallow study due to difficulty initiating a swallow without food. She has been having difficulty for the past 2 months and it somewhat coincides with her last chemo treatment. She has breast cancer and has had two chemo treatments and has opted not to have more. She reports her mouth is dry and she has to have water to help her swallow . ORAL MOTOR FUNCTION AND DENTITION Patient able to move tongue and lips. She wears a full upper denture and is missing several lower teeth. THIN LIQUID Patient took sips of thin liquid by cup. She was able to initiate a swallow immediately and there was no penetration, aspiration or pharyngeal residue. PUREE Patient given a teaspoon of puree. She was able to manipulate and swallow without difficulty and had no penetration, aspiration or pharyngeal residue. MUFFIN AND COOKIE WITH BARIUM PUREE Patient given separate trials of muffin and cookie each mixed with barium puree. She was able to chew each consistency and swallow without penetration, aspiration or pharyngeal residue. IMPRESSIONS AND RECOMMENDATIONS Patient's swallow with food and liquid is safe and functional with no penetration , aspiration or pharyngeal residue. She was able to initiate a swallow well with food but as we sat reviewing the images she reported that she was not able to complete a dry swallow. She reports having a dry mouth which could be part of the reason she is not able to swallow. Recommended patient have water available to moisten mouth. She could try chewing some gum or a hard candy. Colder temperatures can help to initiate a swallow so perhaps it would help to put ice in her water. If she has anxiety about swallowing recommend she try to stay relaxed as functionally her swallow is good. Therapist Signature & License # I Certify That Therapy Services Provided Therapist Signature & License Number Betzy Cortes, [facility]-CHILD SUPPORT INVESTIGATOR, # [id number] Physician Signature Signature of Physician Indicates Medically Needed Services Physician Signature & Date Required Please Sign/Date Here Speech/Language Pathology Billing Units Billing Units Eval Swallow Motion Fluoro 1
== END 2022-07-25 07:54 | disposition home or self-care (01) ==
LOC: US 07:54
PROVIDERS: PCP Physician Assistant Medical; Visit Provider Nurse Practitioner Family
DX: R09.89 Other specified symptoms and signs involving the circulatory and respiratory systems (principal); E80.6 Other disorders of bilirubin metabolism
CPT/HCPCS: 74230; 76705; 92611

== ENCOUNTER 2022-08-06 13:44 | Outpatient (CLI) | payer MEDICARE, SELFPAY | END 2022-08-06 13:45 | disposition home or self-care (01) | LOC: NFLDREF 08-08 08:38 | PROVIDERS: PCP Physician Assistant Medical; Referring Provider Physician Assistant Medical; Visit Provider Family Medicine | DX: R39.89 Other symptoms and signs involving the genitourinary system (principal) | CPT/HCPCS: 87086 ==

== ENCOUNTER 2022-08-23 09:04 | Outpatient (RCR) | payer MEDICARE, SELFPAY ==
[2022-08-23 09:39] LABS: Basophils Percent Auto 0.2 % (0.0-3.0); Eosinophils Percent Auto 2.4 % (0.0-7.0); Hematocrit 38.6 % (33.0-51.0); Hemoglobin* 13.2 gm/dL (12.0-16.0); Lymphocytes Percent Auto 36.4 % (20-44); Mean Corpuscular HGB Conc 34 gm/dL (32-36); Mean Corpuscular Hemoglobin 31 pg (26-34); Mean Corpuscular Volume 91 fL (80-100); Monocytes Percent Auto 8.3 % (0.0-11.0); Neutrophils Percent Auto 52.7 % (42.0-72.0); Platelet Count* 139 K/uL (140-440); RDW Coefficient of Variation % 12.3 % (11.5-15.5); Red Blood Count 4.25 m/uL (4.00-5.20); White Blood Count* 4.23 K/uL (4.50-11.00)
[2022-08-23 09:54] LABS: Albumin* 3.9 g/dL (3.3-5.0); Chloride* 105 mmol/L (96-114); Potassium* 3.5 mmol/L (3.6-5.1); Sodium* 141 mmol/L (135-149)
[2022-08-23 09:56] LABS: Creatinine* 0.8 mg/dL (0.5-1.5); Estimated Glomerular Filt Rate 79 ml/min; Slide Review Reflex No
[2022-08-23 09:57] LABS: Alanine Aminotransferase* 19 U/L (4-35); Alkaline Phosphatase* 76 U/L (40-150); Aspartate Amino Transferase* 33 U/L (12-35); Bilirubin Total* 1.5 mg/dL (0.1-1.5); Blood Urea Nitrogen* 8 mg/dL (7-30); Carbon Dioxide* 31 mmol/L (20-32); Glucose* 108 mg/dL (60-115)
== END 2022-09-07 23:59 | disposition home or self-care (01) ==
LOC: CCIC 09:04
PROVIDERS: Clinical Nurse Specialist; PCP Physician Assistant Medical; Referring Provider Family Medicine; Visit Provider Internal Medicine Hematology & Oncology
DX: C50.911 Malignant neoplasm of unspecified site of right female breast (principal); Z17.0 Estrogen receptor positive status [ER+]; R53.1 Weakness; R25.1 Tremor, unspecified; F31.10 Bipolar disorder, current episode manic without psychotic features, unspecified; R11.2 Nausea with vomiting, unspecified
CPT/HCPCS: 36415; 80053; 85025; 99212; 99215

== ENCOUNTER 2022-08-28 10:48 | Outpatient (CLI) | payer MEDICARE, SELFPAY ==
--- NOTE | 2022-08-28 11:14 | W.ANESCHARGE ---
Anesthesia Charges Start Date/Time Anesthesia Start Date: 08/28/22 Anesthesia Start Time: 11:45 Stop Date/Time Anesthesia Stop Date: 08/28/22 Anesthesia Stop Time: 11:55 Summary Extremes of Age - Over 70 or under 1: MDA
--- NOTE | 2022-08-28 11:58 | W.ANESCHARGE ---
Anesthesia Charges Start Date/Time Anesthesia Start Date: 08/28/22 Anesthesia Start Time: 11:45 Stop Date/Time Anesthesia Stop Date: 08/28/22 Anesthesia Stop Time: 11:55 Summary Extremes of Age - Over 70 or under 1: FINANCIAL ANALYST INTERN
== END 2022-08-28 10:49 | disposition home or self-care (01) ==
LOC: OP CLINIC 10:49
PROVIDERS: PCP Physician Assistant Medical; Visit Provider Surgery
DX: R13.10 Dysphagia, unspecified (principal)
CPT/HCPCS: 43239; 731; 88305; 99100; J2704; J3490